=== PATIENT | male | born 1960 | race African-American/Black ===

== ENCOUNTER 2016-12-19 12:59 | Inpatient (IN) | payer OTHER ==
[2016-12-19 17:46] VITALS: BMI 24.6
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
[2016-12-19] MEDS ORDERED: MAG HYDROX/AL HYDROX/SIMETH 30 ML UNIT-DOSE CUP PO PRN (19:31)
[2016-12-19] MEDS ORDERED: hydrOXYzine PAMOATE 50 MG CAPSULE (FP) PO PRN (19:31)
[2016-12-19] MEDS ORDERED: LOPERAMIDE HCL 2 MG CAPSULE PO PRN (19:31)
[2016-12-19] MEDS ORDERED: P-EPHED 60MG/TRIPROLIDI 2.5MG TABLET PO PRN (19:31)
[2016-12-19] MEDS ORDERED: IBUPROFEN 400 MG TABLET (FP) PO PRN (19:31)
[2016-12-19] MEDS ORDERED: diphenhydrAMINE HCL 50 MG CAPSULE PO PRN (19:31)
[2016-12-19] MEDS ORDERED: chlordiazePOXIDE HCL 25 MG CAPSULE PO PRN (19:31)
[2016-12-19] MEDS ORDERED: MAGNESIUM HYDROX 2400MG/30ML ORAL SUSPENSION 30 ML CUP PO PRN (19:31)
[2016-12-19] MEDS ORDERED: MAGNESIUM CITRATE 300 ML BOTTLE PO PRN (19:31)
[2016-12-19] MEDS ORDERED: MENTHOL/PHENOL 1 EACH UD MM PRN (19:31)
[2016-12-19] MEDS ORDERED: chlordiazePOXIDE HCL 25 MG CAPSULE PO ONE (19:31)
[2016-12-19] MEDS ORDERED: NICOTINE POLACRILEX 4 MG GUM BC PRN (19:31)
[2016-12-19] MEDS ORDERED: guaiFENesin/D-METHORPHAN HB 10 ML UNIT-DOSE CUPS PO PRN (19:31)
[2016-12-19] MEDS ORDERED: ALBUTEROL SO4 2.5/IPRATROPIUM 0.5 INH SOL 3 ML VIAL.NEB. NEB PRN (19:39)
[2016-12-19] MEDS ORDERED: ALBUTEROL SO4 6.7 GM HFA INHALER IH PRN (19:39)
[2016-12-19] MEDS ORDERED: BACLOFEN 10 MG TABLET (FP) PO PRN (19:40)
[2016-12-19] MEDS: levETIRAcetam 500 MG TABLET (FP) PO SCH (22:07)
[2016-12-19] MEDS: METOPROLOL SUCCINATE 25 MG TAB.SR.24H (FP) PO SCH (22:07)
[2016-12-19] MEDS: chlordiazePOXIDE HCL 25 MG CAPSULE PO SCH (22:07)
[2016-12-19] MEDS: THIAMINE HCL 100 MG TABLET (FP) PO SCH (22:07)
[2016-12-19] MEDS: RANITIDINE HCL 150 MG TABLET (FP) PO SCH (22:07)
[2016-12-19] MEDS: ATORVASTATIN CA 40 MG TABLET (FP) PO SCH (22:07)
[2016-12-19] MEDS: CLOTRIMAZOLE 1% CREAM 15 GM TUBE TP SCH (22:11)
[2016-12-20] MEDS: chlordiazePOXIDE HCL 25 MG CAPSULE PO SCH ×4 (05:58→22:15)
[2016-12-20] MEDS: RANITIDINE HCL 150 MG TABLET (FP) PO SCH ×2 (10:15→22:15)
[2016-12-20] MEDS: ASPIRIN 81 MG CHEWABLE TABLETS PO SCH (10:15)
[2016-12-20] MEDS: levETIRAcetam 500 MG TABLET (FP) PO SCH ×2 (10:15→22:15)
[2016-12-20] MEDS: METOPROLOL SUCCINATE 25 MG TAB.SR.24H (FP) PO SCH ×2 (10:16→22:55)
[2016-12-20] MEDS: PRENATAL VITAMINS W/ FOLIC ACID TABLET (FP) PO SCH (10:16)
[2016-12-20] MEDS: CLOTRIMAZOLE 1% CREAM 15 GM TUBE TP SCH ×2 (10:16→22:16)
[2016-12-20] MEDS: NICOTINE 21 MG/24 HOURS TOPICAL PATCH TD SCH (10:16)
[2016-12-20] MEDS: ACETAMINOPHEN 325 MG TABLET (FP) PO PRN ×2 (10:17→17:34)
--- NOTE | 2016-12-20 10:31 | CONSULT ---
[facility] Psychiatric Consult - Data Date of interview: 12/20/16 Admission source: [facility] Identifying data: Readmission to [facility] for this 56 y/o AA male seeking detox treatment on for alcohol dependence.Patient is single,a father of one,now domiciled,unemployed and supported on SSI benefits. Substance Abuse History: - Smoking Cessation. Smoking history: Current every day smoker. Have you smoked in the past 12 months: Yes. Aproximately how many cigarettes per day: 15. Cigars Per Day: 0. Hx Chewing Tobacco Use: No. Initiated information on smoking cessation: Yes. 'Breaking Loose' booklet given : 12/19/16. - Substance & Tx. History. Hx Alcohol Use: Yes. Hx Substance Use : No. Substance Use Type: Alcohol. Hx Substance Use Treatment: Yes. - Substances Abused. Alcohol. Route: Oral. Frequency: Daily. Amount used: 25ozx4+locox4. Age of first use: 12. Date of Last Use: 12/18/16. Confirmed by patient. Medical History: Significant for hypertension,GERD,bronchial asthma,COPD, diabetes mellitus-type II and dyslipidemia.Noted history of splenectomy. Psychiatric History: Past history of psychiatric hospitalizations for depression /suicide attempt via overdose with pills.Diagnosed with MDD and prescribed trazodone 200 mg/hs + sertraline 100 mg/day.Psychiatric outpatient services are rendered at [facility] in the [place].Mr Horn requests continuation of his medications. Physical/Sexual Abuse/Trauma History: Patient denies. Additional Comment: Urine Drug Screen Results: MET-Methamphetamine, BZO- Benzodiazepines.Noted. Mental Status Exam - Mental Status Exam Alert and Oriented to: Time, Place, Person Cognitive Function: Grossly Intact Patient Appearance: Well Groomed Mood: Anxious, Apprehensive, Hopeful Affect: Mood Congruent Patient Behavior: Sedated (light sedation), Fatigued Speech Pattern: Clear Voice Loudness: Normal Thought Process: Goal Oriented Thought Disorder: Not Present Hallucinations: Denies Suicidal Ideation: Denies Homicidal Ideation: Denies Insight/Judgement: Poor Sleep: Poorly, Difficulty falling asleep Appetite: Good Muscle strength/Tone: Normal Gait/Station: Normal Psychiatric Findings - Problem List ([place] 1, 2,3) (1) Alcohol dependence with uncomplicated withdrawal Current Visit: Yes Status: Acute (2) Amphetamine abuse Current Visit: Yes Status: Acute (3) Nicotine dependence Current Visit: Yes Status: Acute Qualifiers: Nicotine product type: cigarettes Substance use status: in withdrawal Qualified Code(s): F17.213 - Nicotine dependence, cigarettes, with withdrawal (4) Depressive disorder Current Visit: Yes Status: Chronic (5) Substance induced mood disorder Current Visit: Yes Status: Acute (6) Asthma Current Visit: Yes Status: Chronic Qualifiers: Asthma severity: mild intermittent Asthma complication type: with status asthmaticus Qualified Code(s): J45.22 - Mild intermittent asthma with status asthmaticus (7) COPD (chronic obstructive pulmonary disease) Current Visit: Yes Status: Chronic Qualifiers: COPD type: emphysema Emphysema type: panlobular Qualified Code(s ): J43.1 - Panlobular emphysema (8) DM2 (diabetes mellitus, type 2) Current Visit: Yes Status: Chronic Qualifiers: Diabetes mellitus complication status: without complication Diabetes mellitus long-term insulin use: without exterminator use Qualified Code(s): E11.9 - Type 2 diabetes mellitus without complications (9) Essential hypertension Current Visit: Yes Status: Chronic (10) GERD (gastroesophageal reflux disease) Current Visit: Yes Status: Chronic Qualifiers: Esophagitis presence: without esophagitis Qualified Code(s): K21.9 - Gastro-esophageal reflux disease without esophagitis (11) Hyperlipidemia Current Visit: Yes Status: Chronic Qualifiers: Hyperlipidemia type: pure hypercholesterolemia Qualified Code(s): E78.00 - Pure hypercholesterolemia, unspecified; E78.0 - Pure hypercholesterolemia (12) Low back pain Current Visit: Yes Status: Chronic Qualifiers: Chronicity: chronic Back pain laterality: bilateral Sciatica presence: without sciatica Qualified Code(s): M54.5 - Low back pain (13) Insomnia Current Visit: Yes Status: Acute - Initial Treatment Plan Initial Treatment Plan: Psychoeducation.Detoxification.Medications : seroquel 200 mg po hs.Patient declines to resume trazodone.Side effects/benefits of seroquel are discussed with the patient.He agrees with careplan.Observation.
--- NOTE | 2016-12-20 14:57 | PN ---
[facility] CIWA - CIWA Score Nausea/Vomitin Muscle Tremors: 4-Moderate,w/Arms Extend Anxiety: 3 Agitation: 2 Paroxysmal Sweats: 3 Orientation: 4Disoriented Place/Person Tacttile Disturbances: 0-None Auditory Disturbances: 0-None Visual Disturbances: 0-None Headache: 3-Moderate CIWA-Ar Total Score: 24 [facility] Progress Note (SOAP) Subjective: Diarrhea, Vomiting, Sweating, H/A, Back Ache, Tremors. Objective: PT. A & O X 1 (DISORIENTED ABOUT DAY/DATE AND ABOUT CURRENT LOCATION). 12/20/16 14:53 Vital Signs Temperature 96.7 F L 12/20/16 13:19 Pulse Rate 75 12/20/16 13:19 Respiratory Rate 20 12/20/16 13:19 Blood Pressure 131/78 12/20/16 13:19 O2 Sat by Pulse Oximetry (%) Laboratory Last Values POC Glucometer 125 UNITS (()) 12/20/16 05:59 12/20/16 14:55 GLUCOMETER READING NOTED. UA NOT YET COLLECTED. PATIENT REFUSED OTHER LABS. Assessment: 12/20/16 14:56 WITHDRAWAL SYMPTOMS. Plan: CONTINUE DETOX. ADVISED PATIENT TO FOLLOW-UP WITH SOCIAL WORK JOB TITLES / REHAB MEDICAL PROVIDER AFTER DISCHARGE FROM DETOX FOR GENERAL MEDICAL ASSESSMENT.
[2016-12-20] MEDS: THIAMINE HCL 100 MG TABLET (FP) PO SCH (22:14)
[2016-12-20] MEDS: QUEtiapine FUMARATE 200 MG TABLET PO SCH (22:15)
[2016-12-20] MEDS: ATORVASTATIN CA 40 MG TABLET (FP) PO SCH (22:15)
[2016-12-21] MEDS: chlordiazePOXIDE HCL 25 MG CAPSULE PO SCH ×3 (05:57→17:26)
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
[2016-12-21] MEDS: RANITIDINE HCL 150 MG TABLET (FP) PO SCH ×2 (10:10→22:20)
[2016-12-21] MEDS: PRENATAL VITAMINS W/ FOLIC ACID TABLET (FP) PO SCH (10:10)
[2016-12-21] MEDS: levETIRAcetam 500 MG TABLET (FP) PO SCH ×2 (10:11→22:21)
[2016-12-21] MEDS: CLOTRIMAZOLE 1% CREAM 15 GM TUBE TP SCH ×2 (10:11→22:20)
[2016-12-21] MEDS: NAPROXEN 500 MG TABLET (FP) PO SCH ×2 (10:11→22:20)
[2016-12-21] MEDS: NICOTINE 21 MG/24 HOURS TOPICAL PATCH TD SCH (10:11)
[2016-12-21] MEDS: METOPROLOL SUCCINATE 25 MG TAB.SR.24H (FP) PO SCH ×2 (10:11→22:20)
[2016-12-21] MEDS: ASPIRIN 81 MG CHEWABLE TABLETS PO SCH (10:11)
[2016-12-21] MEDS: GABAPENTIN 100 MG CAPSULE (FP) PO SCH ×2 (13:14→22:19)
[2016-12-21] MEDS: CYCLOBENZAPRINE HCL 10 MG TABLET (FP) PO SCH ×2 (13:14→22:20)
[2016-12-21 14:00] LABS: URINE APPEARANCE CLEAR; URINE BILIRUBIN NEGATIVE (NEGATIVE); URINE BLOOD NEGATIVE (NEGATIVE); URINE COLOR YELLOW; URINE GLUCOSE (UA) 1+ (NEGATIVE); URINE KETONE NEGATIVE (NEGATIVE); URINE LEUK ESTERASE NEGATIVE (NEGATIVE); URINE NITRITE NEGATIVE (NEGATIVE); URINE PROTEIN NEGATIVE (NEGATIVE); URINE UROBILINOGEN 2.0 E.U/dl E.U./dl (0.2-1.0)
--- NOTE | 2016-12-21 14:31 | EKG ---
Test Reason : Blood Pressure : / mmHG Vent. Rate : 075 BPM Atrial Rate : 075 BPM P-R Int : 158 ms QRS Dur : 086 ms QT Int : 406 ms P-R-T Axes : 078 037 016 degrees QTc Int : 453 ms NORMAL SINUS RHYTHM VOLTAGE CRITERIA FOR LEFT VENTRICULAR HYPERTROPHY CANNOT RULE OUT SEPTAL INFARCT , AGE UNDETERMINED EARLY REPOLARIZATION ABNORMAL ECG NO PREVIOUS ECGS AVAILABLE CLINICAL CORRELATION IS RECOMMENDED Confirmed by JAIDEN ROWELL, SUSAN ([id number]) on 12/21/2016 2:31:08 PM Referred By: Rosendo Kent Confirmed By:SUSAN HWANG MD
[2016-12-21] MEDS: ACETAMINOPHEN 325 MG TABLET (FP) PO PRN (17:28)
[2016-12-21] MEDS ORDERED: levETIRAcetam 250 MG TABLET (FP) PO ONE (19:53)
[2016-12-21] MEDS ORDERED: ATORVASTATIN CA 20 MG TABLET (FP) ONE (19:54)
[2016-12-21] MEDS: THIAMINE HCL 100 MG TABLET (FP) PO SCH (22:19)
[2016-12-21] MEDS: ATORVASTATIN CA 40 MG TABLET (FP) PO SCH (22:20)
[2016-12-21] MEDS: QUEtiapine FUMARATE 200 MG TABLET PO SCH (22:20)
[2016-12-21] MEDS: chlordiazePOXIDE 5 MG CAPSULE PO SCH (23:22)
[2016-12-22] MEDS: GABAPENTIN 100 MG CAPSULE (FP) PO SCH ×3 (05:35→22:08)
[2016-12-22] MEDS: CYCLOBENZAPRINE HCL 10 MG TABLET (FP) PO SCH ×3 (05:35→22:09)
[2016-12-22] MEDS: ACETAMINOPHEN 325 MG TABLET (FP) PO PRN (05:37)
[2016-12-22] MEDS: chlordiazePOXIDE 5 MG CAPSULE PO SCH ×3 (06:16→17:19)
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
[2016-12-22] MEDS: ASPIRIN 81 MG CHEWABLE TABLETS PO SCH (10:13)
[2016-12-22] MEDS: RANITIDINE HCL 150 MG TABLET (FP) PO SCH ×2 (10:14→22:09)
[2016-12-22] MEDS: CLOTRIMAZOLE 1% CREAM 15 GM TUBE TP SCH ×2 (10:14→22:09)
[2016-12-22] MEDS: PRENATAL VITAMINS W/ FOLIC ACID TABLET (FP) PO SCH (10:14)
[2016-12-22] MEDS: NAPROXEN 500 MG TABLET (FP) PO SCH ×2 (10:14→22:08)
[2016-12-22] MEDS: NICOTINE 21 MG/24 HOURS TOPICAL PATCH TD SCH (10:14)
[2016-12-22] MEDS: METOPROLOL SUCCINATE 25 MG TAB.SR.24H (FP) PO SCH ×2 (10:14→22:08)
[2016-12-22] MEDS ORDERED: levETIRAcetam 250 MG TABLET (FP) PO ONE (10:15)
[2016-12-22] MEDS: levETIRAcetam 500 MG TABLET (FP) PO SCH ×2 (10:18→22:08)
[2016-12-22] MEDS: FLUOCINONIDE 0.05% TOP OINT (60 GM TUBE) TP SCH ×4 (12:51→22:08)
[2016-12-22] MEDS: THIAMINE HCL 100 MG TABLET (FP) PO SCH (22:08)
[2016-12-22] MEDS: chlordiazePOXIDE HCL 10 MG CAPSULE PO SCH (22:08)
[2016-12-22] MEDS: ATORVASTATIN CA 40 MG TABLET (FP) PO SCH (22:08)
[2016-12-22] MEDS: QUEtiapine FUMARATE 200 MG TABLET PO SCH (22:09)
[2016-12-23] MEDS: GABAPENTIN 100 MG CAPSULE (FP) PO SCH (05:33)
[2016-12-23] MEDS: CYCLOBENZAPRINE HCL 10 MG TABLET (FP) PO SCH (05:33)
[2016-12-23] MEDS: chlordiazePOXIDE HCL 10 MG CAPSULE PO SCH ×2 (05:34→10:27)
[2016-12-23] MEDS: ACETAMINOPHEN 325 MG TABLET (FP) PO PRN (05:34)
[2016-12-23 06:19] VITALS: BP 115/67; PULSE 77; TEMP 95.8
[2016-12-23 10:04] LABS: BASOPHIL 0.8 % (0-2.0); MCH 31.8 pg (25.7-33.7); MCHC 32.7 g/dl (32.0-35.9); MEAN CELL VOLUME 97.3 fl (80-96); MEAN PLT VOLUME 8.5 fl (7.5-11.1); NEUTROPHILS 64.7 % (42.8-82.8); PLATELET COUNT 440 K/MM3 (134-434); RDW 18.7 % (11.9-15.9); WHITE BLOOD COUNT 7.8 K/mm3 (4.0-10.0)
[2016-12-23] MEDS: PRENATAL VITAMINS W/ FOLIC ACID TABLET (FP) PO SCH (10:25)
[2016-12-23] MEDS: RANITIDINE HCL 150 MG TABLET (FP) PO SCH (10:25)
[2016-12-23] MEDS: levETIRAcetam 500 MG TABLET (FP) PO SCH (10:25)
[2016-12-23] MEDS: NAPROXEN 500 MG TABLET (FP) PO SCH (10:25)
[2016-12-23] MEDS: FLUOCINONIDE 0.05% TOP OINT (60 GM TUBE) TP SCH (10:26)
[2016-12-23] MEDS: ASPIRIN 81 MG CHEWABLE TABLETS PO SCH (10:26)
[2016-12-23] MEDS: METOPROLOL SUCCINATE 25 MG TAB.SR.24H (FP) PO SCH (10:26)
[2016-12-23] MEDS: CLOTRIMAZOLE 1% CREAM 15 GM TUBE TP SCH (10:26)
[2016-12-23] MEDS: NICOTINE 21 MG/24 HOURS TOPICAL PATCH TD SCH (10:26)
[2016-12-23 10:27] LABS: ALBUMIN 3.4 g/dl (3.4-5.0); ALK PHOS 96 U/L (45-117); ANION GAP 7 (8-16); BILIRUBIN,TOTAL 0.2 mg/dL (0.2-1.0); CALCIUM 9.3 mg/dL (8.5-10.1); CO2 27 mmol/L (21-32); COCKROFT - GAULT 108.64; CREATININE 0.9 mg/dL (0.7-1.3); GLUCOSE,RANDOM 87 mg/dL (74-106); SGOT/AST 27 U/L (15-37); SGPT/ALT 33 U/L (12-78); TOT PROT 6.5 g/dl (6.4-8.2)
--- NOTE | 2016-12-23 10:45 | DS ---
[facility] Detox Discharge Summary Admission Date: 12/19/16 Discharge Date: 12/23/16 - History Present History: Alcohol Dependence Pertinent Past History: GERD Asthma HTN Hyperlipidemia type II DM - Physical Exam Results Vital Signs: Vital Signs Temperature 95.8 F L 12/23/16 06:19 Pulse Rate 77 12/23/16 06:19 Respiratory Rate 16 12/23/16 06:19 Blood Pressure 115/67 12/23/16 06:19 O2 Sat by Pulse Oximetry (%) Pertinent Admission Physical Exam Findings: Withdrawal sx. Laboratory Last Values WBC 7.8 K/mm3 (4.0-10.0) 12/23/16 07:00 RBC 3.75 M/mm3 (4.00-5.60) L 12/23/16 07:00 Hgb 11.9 GM/dL (11.7-16.9) 12/23/16 07:00 Hct 36.5 % (35.4-49) 12/23/16 07:00 MCV 97.3 fl (80-96) H 12/23/16 07:00 MCHC 32.7 g/dl (32.0-35.9) 12/23/16 07:00 RDW 18.7 % (11.9-15.9) H 12/23/16 07:00 Plt Count 440 K/MM3 (134-434) H D 12/23/16 07:00 MPV 8.5 fl (7.5-11.1) 12/23/16 07:00 Neutrophils % 64.7 % (42.8-82.8) 12/23/16 07:00 Lymphocytes % 23.0 % (8-40) 12/23/16 07:00 Monocytes % 9.5 % (3.8-10.2) 12/23/16 07:00 Eosinophils % 2.0 % (0-4.5) 12/23/16 07:00 Basophils % 0.8 % (0-2.0) 12/23/16 07:00 Sodium 141 mmol/L (136-145) 12/23/16 07:00 Potassium 4.7 mmol/L (3.5-5.1) 12/23/16 07:00 Chloride 107 mmol/L (98-107) 12/23/16 07:00 Carbon Dioxide 27 mmol/L (21-32) D 12/23/16 07:00 Anion Gap 7 (8-16) L 12/23/16 07:00 BUN 14 mg/dL (7-18) D 12/23/16 07:00 Creatinine 0.9 mg/dL (0.7-1.3) D 12/23/16 07:00 Creat Clearance w eGFR > 60 (>60) 12/23/16 07:00 POC Glucometer 95 UNITS (()) 12/23/16 05:32 Random Glucose 87 mg/dL (74-106) D 12/23/16 07:00 Calcium 9.3 mg/dL (8.5-10.1) 12/23/16 07:00 Total Bilirubin 0.2 mg/dL (0.2-1.0) D 12/23/16 07:00 AST 27 U/L (15-37) D 12/23/16 07:00 ALT 33 U/L (12-78) D 12/23/16 07:00 Alkaline Phosphatase 96 U/L (45-117) 12/23/16 07:00 Total Protein 6.5 g/dl (6.4-8.2) 12/23/16 07:00 Albumin 3.4 g/dl (3.4-5.0) 12/23/16 07:00 Urine Color Yellow 12/21/16 13:30 Urine Appearance Clear 12/21/16 13:30 Urine pH 7.0 (5.0-8.0) D 12/21/16 13:30 Ur Specific [place] 1.021 (1.001-1.035) 12/21/16 13:30 Urine Protein Negative (NEGATIVE) 12/21/16 13:30 Urine Glucose (UA) 1+ (NEGATIVE) H 12/21/16 13:30 Urine Ketones Negative (NEGATIVE) 12/21/16 13:30 Urine Blood Negative (NEGATIVE) 12/21/16 13:30 Urine Nitrite Negative (NEGATIVE) 12/21/16 13:30 Urine Bilirubin Negative (NEGATIVE) 12/21/16 13:30 Urine Urobilinogen 2.0 e.u/dl E.U./dl (0.2-1.0) 12/21/16 13:30 Ur Leukocyte Esterase Negative (NEGATIVE) 12/21/16 13:30 labs noted - Treatment Hospital Course: Detox Protocol Followed, Detoxed Safely, Responded well, Discharged Condition Good, Rehab Referral Accepted Patient has Accepted a Rehab Referral to: [facility] & 12 step meetings - Medication Discharge Medications: Ambulatory Orders Albuterol Sulfate Inhaler - [Ventolin Hfa Inhaler -] 2 inh PO Q4H PRN 08/29/16 Aspirin [ASA -] 81 mg PO DAILY 08/29/16 Atorvastatin Ca [Lipitor] 40 mg PO HS 08/29/16 Folic Acid - 1 mg PO DAILY 08/29/16 Ibuprofen [Motrin -] 600 mg PO TID PRN 08/29/16 Levetiracetam [Keppra -] 500 mg PO Q12H 08/29/16 Lisinopril [Prinivil] 20 mg PO DAILY 08/29/16 Lisinopril [Prinivil] 20 mg PO DAILY 08/29/16 Meloxicam [Mobic] 15 mg PO DAILY 08/29/16 Metformin HCl [Glucophage -] 500 mg PO BID 08/29/16 Metoprolol Tartrate [Lopressor -] 25 mg PO BID 08/29/16 Multivitamins [Tab-A-Vit -] 1 tab PO DAILY 08/29/16 Quetiapine Fumarate [Seroquel] 300 mg PO HS 08/29/16 Ranitidine HCl 150 mg PO BID 08/29/16 Sertraline HCl [Zoloft -] 100 mg PO DAILY 08/29/16 Tiotropium [place] [Spiriva] 1 inh PO DAILY 08/29/16 Trazodone HCl 200 mg PO HS 08/29/16 Sertraline HCl [Zoloft] 100 mg PO DAILY #30 tablet 08/30/16 Trazodone HCl 200 mg PO HS #60 tablet 08/30/16 Quetiapine Fumarate [Seroquel -] 200 mg PO HS #30 tab 12/20/16 - Diagnosis (1) Alcohol dependence with uncomplicated withdrawal Current Visit: Yes Status: Acute (2) Nicotine dependence Current Visit: Yes Status: Acute Qualifiers: Nicotine product type: cigarettes Substance use status: in withdrawal Qualified Code(s): F17.213 - Nicotine dependence, cigarettes, with withdrawal (3) Seizure Current Visit: Yes Status: Acute (4) Asthma Current Visit: Yes Status: Chronic Qualifiers: Asthma severity: mild intermittent Asthma complication type: uncomplicated Qualified Code(s): J45.20 - Mild intermittent asthma, uncomplicated (5) DM2 (diabetes mellitus, type 2) Current Visit: Yes Status: Chronic Qualifiers: Diabetes mellitus complication status: without complication Diabetes mellitus senior living insulin use: without intermediate frame tender use Qualified Code(s): E11.9 - Type 2 diabetes mellitus without complications (6) Essential hypertension Current Visit: Yes Status: Chronic (7) Hyperlipidemia Current Visit: Yes Status: Chronic Qualifiers: Hyperlipidemia type: pure hypercholesterolemia Qualified Code(s): E78.00 - Pure hypercholesterolemia, unspecified; E78.0 - Pure hypercholesterolemia - AMA Did Patient Leave Against Medical Advice: No
== END 2016-12-23 11:08 | disposition home or self-care (01) | DRG 775 ==
LOC: YASAS 12:59 → Y3N 19:03
PROVIDERS: ADMIT Internal Medicine; ATTEND Internal Medicine
PROC: HZ2ZZZZ Detoxification Services for Substance Abuse Treatment (ICD-10-PCS; principal; 2016-12-19)
DX: F10.230 Alcohol dependence with withdrawal, uncomplicated (principal); F17.210 Nicotine dependence, cigarettes, uncomplicated; F19.24 Other psychoactive substance dependence with psychoactive substance-induced mood disorder; F15.10 Other stimulant abuse, uncomplicated; F32.9 Major depressive disorder, single episode, unspecified; G40.909 Epilepsy, unspecified, not intractable, without status epilepticus; G47.00 Insomnia, unspecified; E11.9 Type 2 diabetes mellitus without complications; E78.5 Hyperlipidemia, unspecified; I10 Essential (primary) hypertension; M79.652 Pain in left thigh; K21.9 Gastro-esophageal reflux disease without esophagitis; R21 Rash and other nonspecific skin eruption; K08.89 Other specified disorders of teeth and supporting structures; Z91.14 Patient's other noncompliance with medication regimen; Z87.898 Personal history of other specified conditions; Z91.5 Personal history of self-harm
CPT/HCPCS: 36415; 80053; 81003; 85025; 86593; 93005; 93010; J0475

== ENCOUNTER 2017-06-23 13:01 | Inpatient (IN) | payer OTHER ==
[2017-06-23 13:31] VITALS: BMI 27.9
--- NOTE | 2017-06-23 14:26 | HP ---
Admission ROS [facility] Chief Complaint: I need to continue my treatment. Allergies/Adverse Reactions: Allergies Allergy/AdvReac Type Severity Reaction Status Date / Time No Known Allergies Allergy Verified 06/23/17 13:53 History of Present Illness: Pt came for rehab for further treatment. pt was detoxed at a facility in [place] a week ago for alcohol dependence and is here now for rehab. Exam Limitations: No Limitations - Ebola screening Have you traveled outside of the country in the last 21 days: No Have you had contact with anyone from an Ebola affected area: No Have you been sick,other than usual withdrawal symptoms: No Do you have a fever: No - Review of Systems Constitutional: Chills, Diaphoresis, Changes in sleep EENT: reports: No Symptoms Reported Respiratory: reports: No Symptoms reported Cardiac: reports: Syncope GI: reports: No Symptoms Reported, Diarrhea, Poor Fluid Intake : reports: No Symptoms Reported Musculoskeletal: reports: Back Pain Integumentary: reports: Dryness, Pruritus, Rash Neuro: reports: Headache, Tingling, Tremors Endocrine: reports: No Symptoms Reported Hematology: reports: No Symptoms Reported Psychiatric: reports: No Sypmtoms Reported, Judgement Intact, Mood/Affect Appropiate, Orientated x3, Agitated, Anxious Other Systems: Reviewed and Negative Patient History - Patient Medical History Hx Anemia: No Hx Asthma: Yes (on albuterol inhaler) Hx Chronic Obstructive Pulmonary Disease (COPD): Yes Hx Cancer: No Hx Cardiac Disorders: No Hx Congestive Heart Failure: No Hx Hypertension: Yes (non comliance) Hx Hypercholesterolemia: Yes (non cpmliance) Hx Pacemaker: No HX Cerebrovascular Accident: No Hx Seizures: Yes (last 06/22) Hx Dementia: No Hx Diabetes: Yes (type 2 non compliance) Hx Gastrointestinal Disorders: No Hx Liver Disease: No Hx Genitourinary Disorders: No Hx Sexually Transmitted Disorders: No Hx Renal Disease (ESRD): No Hx Thyroid Disease: No Hx Human Immunodeficiency Virus (HIV): No (last 07/23 negative) Hx Hepatitis C: No Hx Depression: Yes (non compliance) Hx Suicide Attempt: Yes (overdose few weeks ago, psychiatric hospitalized x 2 weeks discharged ) Hx Bipolar Disorder: No Hx Schizophrenia: No - Patient Surgical History Past Surgical History: Yes Hx Neurologic Surgery: No Hx Cataract Extraction: No Hx Cardiac Surgery: No Hx Lung Surgery: No Hx Breast Surgery: No Hx Breast Biopsy: No Hx Abdominal Surgery: Yes (splenecty post trauma 2013 in [facility] [address]) Hx Appendectomy: No Hx Cholecystectomy: No Hx Genitourinary Surgery: No Hx Section: No Hx Orthopedic Surgery: Yes (2011 left mid finger immobile) Anesthesia Reaction: No - PPD History Previous Implant?: Yes Documented Results: Negative w/proof Date: 08/31/16 PPD to be Administered?: No - Reproductive History Patient is a Female of Child Bearing Age (11 -55 yrs old): No - Smoking Cessation Smoking history: Current every day smoker Have you smoked in the past 12 months: Yes Aproximately how many cigarettes per day: 15 Cigars Per Day: 0 Hx Chewing Tobacco Use: No Initiated information on smoking cessation: Yes 'Breaking Loose' booklet given: 06/23/17 - Substance & Tx. History Hx Alcohol Use: Yes Hx Substance Use: No Substance Use Type: Alcohol Hx Substance Use Treatment: Yes (last detox a week ago at detox facility in [facility]) Family Disease History - Family Disease History Family Disease History: CA: Father (colon ), Mother (colon,), Respiratory: Brother (killed), Sister, Other: Brother Admission Physical Exam S - Vital Signs Vital Signs: Vital Signs - 24 hr 06/23/17 13:30 Temperature 98.0 F Pulse Rate 100 H Respiratory 18 Rate Blood Pressure 135/87 - Physical General Appearance: Yes: Appropriately Dressed, Moderate Distress, Irritable HEENTM: Yes: Hearing grossly Normal, Normal Voice Respiratory: Yes: Lungs Clear, Normal Breath Sounds, No Respiratory Distress Neck: Yes: No masses,lesions,Nodules Breast: Yes: Within Normal Limits Cardiology: Yes: Regular Rhythm, Regular Rate, S1, S2 Abdominal: Yes: Normal Bowel Sounds, Non Tender, Soft, Surgical Scar (old scar for a spleen removal years ago) Genitourinary: Yes: Within Normal Limits Back: Yes: Normal Inspection Musculoskeletal: Yes: full range of Motion Extremities: Yes: Normal Capillary Refill, Normal Inspection, Non-Tender, Tremors Neurological: Yes: Fully Oriented, Alert, Normal Response Integumentary: Yes: Normal Color, Diaphoresis Lymphatic: Yes: Within Normal Limits - Diagnostic (1) Asthma Current Visit: Yes Status: Chronic Qualifiers: Asthma severity: mild (2) COPD (chronic obstructive pulmonary disease) Current Visit: Yes Status: Chronic Qualifiers: COPD type: unspecified COPD Qualified Code(s): J44.9 - Chronic obstructive pulmonary disease, unspecified; J44.9 - Chronic obstructive pulmonary disease, unspecified; J44.9 - Chronic obstructive pulmonary disease, unspecified; J44.9 - Chronic obstructive pulmonary disease, unspecified (3) DM2 (diabetes mellitus, type 2) Current Visit: Yes Status: Chronic Qualifiers: Diabetes mellitus complication status: without complication (4) Essential hypertension Current Visit: Yes Status: Chronic (5) GERD (gastroesophageal reflux disease) Current Visit: Yes Status: Chronic Qualifiers: Esophagitis presence: without esophagitis (6) Hyperlipidemia Current Visit: Yes Status: Chronic Qualifiers: Hyperlipidemia type: pure hypercholesterolemia (7) Nicotine dependence Current Visit: Yes Status: Chronic Qualifiers: Nicotine product type: cigarettes Substance use status: uncomplicated Qualified Code(s): F17.210 - Nicotine dependence, cigarettes, uncomplicated; F17.210 - Nicotine dependence, cigarettes, uncomplicated (8) Seizure Current Visit: No Status: Chronic (9) Alcohol dependence in remission Current Visit: No Status: Chronic Cleared for Admission S - Detox or Rehab [facility] Level of Care: Medically Managed Claeared for Rehab Admission: Yes [facility] Breath Alcohol Content Breath Alcohol Content: 0 Urine Drug Screen - Results Drug Screen Negative: No Urine Drug Screen Results: BZO-Benzodiazepines Inpatient Rehab Admission - Initial Determination Are CD services needed?: Yes Free of communicable disease: Yes Not in need of hospitalization: Yes - Rehab Admission Criteria Patient is meeting Inpatient Rehab admission criteria:: Yes
[2017-06-23] MEDS ORDERED: LOPERAMIDE HCL 2 MG CAPSULE PO PRN (14:33)
[2017-06-23] MEDS ORDERED: hydrOXYzine PAMOATE 50 MG CAPSULE (FP) PO PRN (14:33)
[2017-06-23] MEDS ORDERED: MAGNESIUM CITRATE 300 ML BOTTLE PO PRN (14:33)
[2017-06-23] MEDS ORDERED: P-EPHED 60MG/TRIPROLIDI 2.5MG TABLET PO PRN (14:33)
[2017-06-23] MEDS ORDERED: NICOTINE POLACRILEX 4 MG GUM BC PRN (14:33)
[2017-06-23] MEDS ORDERED: MAGNESIUM HYDROX 2400MG/30ML ORAL SUSPENSION 30 ML CUP PO PRN (14:33)
[2017-06-23] MEDS ORDERED: guaiFENesin/D-METHORPHAN HB 10 ML UNIT-DOSE CUPS PO PRN (14:33)
[2017-06-23] MEDS ORDERED: MAG HYDROX/AL HYDROX/SIMETH 30 ML UNIT-DOSE CUP PO PRN (14:33)
[2017-06-23] MEDS ORDERED: MENTHOL/PHENOL 1 EACH UD MM PRN (14:33)
[2017-06-23] MEDS ORDERED: ALBUTEROL SO4 18 GM HFA INHALER IH PRN (14:40)
[2017-06-23 21:23] LABS: URINE APPEARANCE CLEAR; URINE BILIRUBIN NEGATIVE (NEGATIVE); URINE BLOOD NEGATIVE (NEGATIVE); URINE COLOR YELLOW; URINE GLUCOSE (UA) NEGATIVE (NEGATIVE); URINE KETONE NEGATIVE (NEGATIVE); URINE NITRITE NEGATIVE (NEGATIVE); URINE PROTEIN NEGATIVE (NEGATIVE); URINE UROBILINOGEN NEGATIVE mg/dL (0.2-1.0)
[2017-06-23] MEDS: diphenhydrAMINE HCL 50 MG CAPSULE PO PRN (21:33)
[2017-06-23] MEDS: THIAMINE HCL 100 MG TABLET (FP) PO SCH (21:33)
[2017-06-23] MEDS: levETIRAcetam 500 MG TABLET (FP) PO SCH (21:35)
[2017-06-23] MEDS: METOPROLOL TARTRATE 25 MG TABLET (FP) PO SCH (21:35)
[2017-06-23] MEDS: BUDESONIDE/FORMETEROL FUMARATE 160/4.5 mcg INHALER IH SCH (21:36)
[2017-06-23 22:18] LABS: URINE LEUK ESTERASE Negative (NEGATIVE)
[2017-06-24] MEDS: metFORMIN HCL 500 MG TABLET (FP) PO SCH (06:27)
--- NOTE | 2017-06-24 06:37 | HP ---
Psychiatrist Admission - Data Date of interview: 06/24/17 Admission source: [facility]) Identifying data: This is the first [facility] admission for this 56 years old single Black male, father of a 32 years old daughter, unemployed on SSI, homeless Medical History: Significant for hypertension,GERD, bronchial asthma,COPD, diabetes mellitus-type II and dyslipidemia, history of splenectomy and surgery left middle finger. Smokes 15 cigarettes daily Psychiatric History: Reports that his first psychiatric treatment was in 2009 when he was admitted to a hospital in [place], [place] for depression and suicidal attempt by taking sleeping pills. Told securities underwriter that the murder of his 18 years old brother was the precipitating factor for that admission. Reports that he was treated with Zoloft and Trazadone. Reports one subsequent psychiatric admission in 2013 to [facility] for depression. Claims that he was drinking at the time. Reports receiving psychiatric outpatient treatment at [facility]) and [facility] in the [place]. He stopped attending the latter 7-8 months ago and has been off psychotropic medications since. Claims that he was prescribed Zoloft 100 mg po daily, Seroquel 200 mg po HS and Trazadone 100 mg po HS. At present, denies feeling depressed by sleeping poorly off medication Physical/Sexual Abuse/Trauma History: Denies history of verbal, physical or sexual abuse as well as DV relationship. No service Additional Comment: Reports history of 2 previous misdemeanir arrests on charges of drinkingi in public. No probation currently Vital Signs: Vital Signs - 24 hr 06/23/17 06/23/17 06/23/17 13:30 20:43 23:06 Temperature 98.0 F Pulse Rate 100 H 106 H 106 H Respiratory 18 Rate Blood Pressure 135/87 156/82 156/82 06/24/17 06/24/17 01:14 03:30 Temperature Pulse Rate Respiratory 18 18 Rate Blood Pressure Allergies/Adverse Reactions: Allergies Allergy/AdvReac Type Severity Reaction Status Date / Time No Known Allergies Allergy Verified 06/23/17 23:16 Date of last physical exam: 06/23/17 Concur with the findings of this exam: Yes - Substance Abuse/Tx History Hx Alcohol Use: Yes Hx Substance Use: No Substance Use Type: Alcohol (Started drinking alcohol at age 11, consumes 2 pints of vodka &4x 25oz of beer daily. Last drank on 06/22/17) Hx Substance Use Treatment: Yes (3 previous inpt detox & 2 inpt rehab admissions ) Mental Status Exam - Mental Status Exam Alert and Oriented to: Time, Place, Person Cognitive Function: Fair Patient Appearance: Well Groomed Mood: Hopeful, Euthymic Affect: Normal Range Patient Behavior: Cooperative Voice Loudness: Normal Thought Process: Intact, Goal Oriented Thought Disorder: Not Present Hallucinations: Denies Suicidal Ideation: Denies, Past, Plan (Took pills in 2009) Homicidal Ideation: Denies Insight/Judgement: Fair Sleep: Poorly Appetite: Good Muscle strength/Tone: Normal Gait/Station: Normal Psychiatric Findings - Problem List ([place] 1, 2,3) (1) Alcohol dependence Current Visit: Yes Status: Acute (2) Nicotine dependence Current Visit: Yes Status: Chronic Qualifiers: Nicotine product type: cigarettes Substance use status: uncomplicated Qualified Code(s): F17.210 - Nicotine dependence, cigarettes, uncomplicated; F17.210 - Nicotine dependence, cigarettes, uncomplicated (3) MDD (major depressive disorder), recurrent episode, severe Current Visit: Yes Status: Acute (4) Asthma Current Visit: Yes Status: Chronic Qualifiers: Asthma severity: mild (5) COPD (chronic obstructive pulmonary disease) Current Visit: Yes Status: Chronic Qualifiers: COPD type: unspecified COPD Qualified Code(s): J44.9 - Chronic obstructive pulmonary disease, unspecified; J44.9 - Chronic obstructive pulmonary disease, unspecified; J44.9 - Chronic obstructive pulmonary disease, unspecified; J44.9 - Chronic obstructive pulmonary disease, unspecified (6) DM2 (diabetes mellitus, type 2) Current Visit: Yes Status: Chronic Qualifiers: Diabetes mellitus complication status: without complication (7) Essential hypertension Current Visit: Yes Status: Chronic (8) GERD (gastroesophageal reflux disease) Current Visit: Yes Status: Chronic Qualifiers: Esophagitis presence: without esophagitis Qualified Code(s): K21.9 - Gastro-esophageal reflux disease without esophagitis; K21.9 - Gastro- esophageal reflux disease without esophagitis; K21.9 - Gastro-esophageal reflux disease without esophagitis (9) Hyperlipidemia Current Visit: Yes Status: Chronic Qualifiers: Hyperlipidemia type: pure hypercholesterolemia Qualified Code(s): E78.00 - Pure hypercholesterolemia, unspecified; E78.00 - Pure hypercholesterolemia, unspecified; E78.00 - Pure hypercholesterolemia, unspecified; E78.0 - Pure hypercholesterolemia (10) Seizure Current Visit: No Status: Chronic - Initial Treatment Plan Initial Treatment Plan: 1) Start Zoloft 100 mg po daily and Trazadone 100 mg po HS. 2) Monitor progress
[2017-06-24] MEDS: PRENATAL VITAMINS W/ FOLIC ACID TABLET (FP) PO SCH (09:47)
[2017-06-24] MEDS: METOPROLOL TARTRATE 25 MG TABLET (FP) PO SCH ×2 (09:47→21:13)
[2017-06-24] MEDS: levETIRAcetam 500 MG TABLET (FP) PO SCH ×2 (09:47→21:13)
[2017-06-24] MEDS: IBUPROFEN 400 MG TABLET (FP) PO PRN ×2 (09:48→15:53)
[2017-06-24] MEDS: NICOTINE 21 MG/24 HOURS TOPICAL PATCH TD SCH (09:51)
[2017-06-24] MEDS: BUDESONIDE/FORMETEROL FUMARATE 160/4.5 mcg INHALER IH SCH ×2 (09:51→21:14)
[2017-06-24 13:45] LABS: MCH 26.9 pg (25.7-33.7); MCHC 31.1 g/dl (32.0-35.9); MEAN CELL VOLUME 86.4 fl (80-96); PLATELET COUNT 376 K/MM3 (134-434); RDW 23.2 % (11.9-15.9)
[2017-06-24] MEDS: SERTRALINE HCL 50 MG TABLET (FP) PO SCH (13:54)
[2017-06-24 15:03] LABS: ALBUMIN 3.5 g/dl (3.4-5.0); ALK PHOS 112 U/L (45-117); ANION GAP 7 (8-16); BILIRUBIN,TOTAL 0.4 mg/dL (0.2-1.0); CALCIUM 8.7 mg/dL (8.5-10.1); CO2 25 mmol/L (21-32); GLUCOSE,RANDOM 75 mg/dL (74-106); SGOT/AST 27 U/L (15-37); SGPT/ALT 27 U/L (12-78); TOT PROT 7.4 g/dl (6.4-8.2)
[2017-06-24] MEDS: THIAMINE HCL 100 MG TABLET (FP) PO SCH (21:12)
[2017-06-24] MEDS: traZODone HCL 100 MG TABLET (FP) PO SCH (21:13)
[2017-06-24] MEDS: diphenhydrAMINE HCL 50 MG CAPSULE PO PRN (21:13)
[2017-06-25] MEDS: metFORMIN HCL 500 MG TABLET (FP) PO SCH (06:26)
[2017-06-25] MEDS: IBUPROFEN 400 MG TABLET (FP) PO PRN (06:27)
[2017-06-25] MEDS: METOPROLOL TARTRATE 25 MG TABLET (FP) PO SCH ×2 (10:32→21:10)
[2017-06-25] MEDS: PRENATAL VITAMINS W/ FOLIC ACID TABLET (FP) PO SCH (10:32)
[2017-06-25] MEDS: levETIRAcetam 500 MG TABLET (FP) PO SCH ×2 (10:32→21:10)
[2017-06-25] MEDS: SERTRALINE HCL 50 MG TABLET (FP) PO SCH (10:32)
[2017-06-25] MEDS: NICOTINE 21 MG/24 HOURS TOPICAL PATCH TD SCH (10:34)
[2017-06-25] MEDS: BUDESONIDE/FORMETEROL FUMARATE 160/4.5 mcg INHALER IH SCH ×2 (10:35→21:11)
[2017-06-25 11:50] LABS: HIV 1 & 2 AB NEGATIVE; HIV 1 AGp24 NEGATIVE
--- NOTE | 2017-06-25 13:08 | EKG ---
Test Reason : Blood Pressure : / mmHG Vent. Rate : 093 BPM Atrial Rate : 093 BPM P-R Int : 164 ms QRS Dur : 090 ms QT Int : 380 ms P-R-T Axes : 068 -02 -13 degrees QTc Int : 472 ms SINUS RHYTHM WITH OCCASIONAL PREMATURE VENTRICULAR COMPLEXES POSSIBLE LEFT ATRIAL ENLARGEMENT LEFT VENTRICULAR HYPERTROPHY ABNORMAL ECG WHEN COMPARED WITH ECG OF 19-DEC-2016 20:00, PREMATURE VENTRICULAR COMPLEXES ARE NOW PRESENT MINIMAL CRITERIA FOR SEPTAL INFARCT ARE NO LONGER PRESENT T WAVE AMPLITUDE HAS DECREASED IN LATERAL LEADS Confirmed by RADHA GRANADOS MD ([id number]) on 06/25/2017 1:08:04 PM Referred By: Confirmed By:RADHA GRANADOS MD
--- NOTE | 2017-06-25 13:08 | EKG ---
Test Reason : Blood Pressure : / mmHG Vent. Rate : 092 BPM Atrial Rate : 092 BPM P-R Int : 164 ms QRS Dur : 092 ms QT Int : 380 ms P-R-T Axes : 070 003 -10 degrees QTc Int : 469 ms NORMAL SINUS RHYTHM POSSIBLE LEFT ATRIAL ENLARGEMENT LEFT VENTRICULAR HYPERTROPHY CANNOT RULE OUT SEPTAL INFARCT (CITED ON OR BEFORE 19-DEC-2016) ABNORMAL ECG WHEN COMPARED WITH ECG OF 19-DEC-2016 20:00, QUESTIONABLE CHANGE IN INITIAL FORCES OF SEPTAL LEADS T WAVE AMPLITUDE HAS DECREASED IN LATERAL LEADS Confirmed by RADHA GRANADOS MD ([id number]) on 06/25/2017 1:08:38 PM Referred By: Confirmed By:RADHA GRANADOS MD
[2017-06-25] MEDS: diphenhydrAMINE HCL 50 MG CAPSULE PO PRN (21:10)
[2017-06-25] MEDS: THIAMINE HCL 100 MG TABLET (FP) PO SCH (21:10)
[2017-06-25] MEDS: traZODone HCL 100 MG TABLET (FP) PO SCH (21:10)
[2017-06-26] MEDS: metFORMIN HCL 500 MG TABLET (FP) PO SCH (06:23)
[2017-06-26] MEDS: IBUPROFEN 400 MG TABLET (FP) PO PRN (06:24)
[2017-06-26] MEDS: METOPROLOL TARTRATE 25 MG TABLET (FP) PO SCH ×2 (10:53→21:34)
[2017-06-26] MEDS: PRENATAL VITAMINS W/ FOLIC ACID TABLET (FP) PO SCH (10:53)
[2017-06-26] MEDS: SERTRALINE HCL 50 MG TABLET (FP) PO SCH (10:53)
[2017-06-26] MEDS: levETIRAcetam 500 MG TABLET (FP) PO SCH ×2 (10:53→21:34)
[2017-06-26] MEDS: BUDESONIDE/FORMETEROL FUMARATE 160/4.5 mcg INHALER IH SCH ×2 (10:54→21:35)
[2017-06-26] MEDS: ACETAMINOPHEN 325 MG TABLET (FP) PO PRN (10:54)
[2017-06-26] MEDS: NICOTINE 21 MG/24 HOURS TOPICAL PATCH TD SCH (10:56)
[2017-06-26] MEDS: THIAMINE HCL 100 MG TABLET (FP) PO SCH (21:34)
[2017-06-26] MEDS: diphenhydrAMINE HCL 50 MG CAPSULE PO PRN (21:34)
[2017-06-26] MEDS: traZODone HCL 100 MG TABLET (FP) PO SCH (21:34)
[2017-06-27] MEDS: metFORMIN HCL 500 MG TABLET (FP) PO SCH (06:37)
[2017-06-27] MEDS: IBUPROFEN 400 MG TABLET (FP) PO PRN (06:38)
[2017-06-27] MEDS: SERTRALINE HCL 50 MG TABLET (FP) PO SCH (10:02)
[2017-06-27] MEDS: PRENATAL VITAMINS W/ FOLIC ACID TABLET (FP) PO SCH (10:02)
[2017-06-27] MEDS: NICOTINE 21 MG/24 HOURS TOPICAL PATCH TD SCH (10:02)
[2017-06-27] MEDS: METOPROLOL TARTRATE 25 MG TABLET (FP) PO SCH ×2 (10:02→21:59)
[2017-06-27] MEDS: levETIRAcetam 500 MG TABLET (FP) PO SCH ×2 (10:02→21:59)
[2017-06-27] MEDS: BUDESONIDE/FORMETEROL FUMARATE 160/4.5 mcg INHALER IH SCH ×2 (10:02→22:00)
[2017-06-27] MEDS: ACETAMINOPHEN 325 MG TABLET (FP) PO PRN (14:17)
[2017-06-27] MEDS ORDERED: LISINOPRIL 10 MG TABLET (FP) PO ONE (16:01)
[2017-06-27] MEDS: traZODone HCL 100 MG TABLET (FP) PO SCH (21:58)
[2017-06-27] MEDS: LISINOPRIL 10 MG TABLET (FP) PO SCH (21:59)
[2017-06-27] MEDS: THIAMINE HCL 100 MG TABLET (FP) PO SCH (21:59)
[2017-06-27] MEDS: diphenhydrAMINE HCL 50 MG CAPSULE PO PRN (21:59)
[2017-06-28] MEDS: metFORMIN HCL 500 MG TABLET (FP) PO SCH (06:33)
[2017-06-28] MEDS: LISINOPRIL 10 MG TABLET (FP) PO SCH ×2 (10:03→21:25)
[2017-06-28] MEDS: levETIRAcetam 500 MG TABLET (FP) PO SCH ×2 (10:03→21:25)
[2017-06-28] MEDS: PRENATAL VITAMINS W/ FOLIC ACID TABLET (FP) PO SCH (10:03)
[2017-06-28] MEDS: NICOTINE 21 MG/24 HOURS TOPICAL PATCH TD SCH (10:03)
[2017-06-28] MEDS: BUDESONIDE/FORMETEROL FUMARATE 160/4.5 mcg INHALER IH SCH ×2 (10:03→22:00)
[2017-06-28] MEDS: SERTRALINE HCL 50 MG TABLET (FP) PO SCH (10:03)
[2017-06-28] MEDS: METOPROLOL TARTRATE 25 MG TABLET (FP) PO SCH ×2 (10:03→21:25)
[2017-06-28] MEDS: traZODone HCL 100 MG TABLET (FP) PO SCH (21:25)
[2017-06-28] MEDS: diphenhydrAMINE HCL 50 MG CAPSULE PO PRN (21:25)
[2017-06-28] MEDS: THIAMINE HCL 100 MG TABLET (FP) PO SCH (22:00)
[2017-06-29] MEDS: metFORMIN HCL 500 MG TABLET (FP) PO SCH (07:04)
[2017-06-29] MEDS: PRENATAL VITAMINS W/ FOLIC ACID TABLET (FP) PO SCH (10:36)
[2017-06-29] MEDS: LISINOPRIL 10 MG TABLET (FP) PO SCH ×2 (10:37→21:49)
[2017-06-29] MEDS: METOPROLOL TARTRATE 25 MG TABLET (FP) PO SCH ×2 (10:37→21:49)
[2017-06-29] MEDS: IBUPROFEN 400 MG TABLET (FP) PO PRN (10:37)
[2017-06-29] MEDS: levETIRAcetam 500 MG TABLET (FP) PO SCH ×2 (10:37→21:49)
[2017-06-29] MEDS: NICOTINE 21 MG/24 HOURS TOPICAL PATCH TD SCH (10:38)
[2017-06-29] MEDS: BUDESONIDE/FORMETEROL FUMARATE 160/4.5 mcg INHALER IH SCH ×2 (10:39→21:48)
[2017-06-29] MEDS: SERTRALINE HCL 50 MG TABLET (FP) PO SCH (10:40)
[2017-06-29] MEDS ORDERED: HYDROCORTISONE 1% TOPICAL CREAM 30 GM TUBE TP PRN (14:53)
[2017-06-29] MEDS ORDERED: CYCLOBENZAPRINE HCL 5 MG TABLET PO PRN (14:53)
[2017-06-29] MEDS: traZODone HCL 100 MG TABLET (FP) PO SCH (21:49)
[2017-06-29] MEDS: THIAMINE HCL 100 MG TABLET (FP) PO SCH (21:49)
[2017-06-29] MEDS: diphenhydrAMINE HCL 50 MG CAPSULE PO PRN (21:49)
[2017-06-30] MEDS: metFORMIN HCL 500 MG TABLET (FP) PO SCH (06:44)
[2017-06-30] MEDS: ACETAMINOPHEN 325 MG TABLET (FP) PO PRN (07:28)
[2017-06-30] MEDS: PRENATAL VITAMINS W/ FOLIC ACID TABLET (FP) PO SCH (10:28)
[2017-06-30] MEDS: SERTRALINE HCL 50 MG TABLET (FP) PO SCH (10:28)
[2017-06-30] MEDS: METOPROLOL TARTRATE 25 MG TABLET (FP) PO SCH ×2 (10:29→21:16)
[2017-06-30] MEDS: NICOTINE 21 MG/24 HOURS TOPICAL PATCH TD SCH (10:29)
[2017-06-30] MEDS: levETIRAcetam 500 MG TABLET (FP) PO SCH ×2 (10:29→21:15)
[2017-06-30] MEDS: LISINOPRIL 10 MG TABLET (FP) PO SCH ×2 (10:29→21:16)
[2017-06-30] MEDS: BUDESONIDE/FORMETEROL FUMARATE 160/4.5 mcg INHALER IH SCH ×2 (10:31→21:16)
[2017-06-30] MEDS: THIAMINE HCL 100 MG TABLET (FP) PO SCH (21:15)
[2017-06-30] MEDS: diphenhydrAMINE HCL 50 MG CAPSULE PO PRN (21:15)
[2017-06-30] MEDS: traZODone HCL 100 MG TABLET (FP) PO SCH (21:15)
[2017-07-01] MEDS: metFORMIN HCL 500 MG TABLET (FP) PO SCH (07:15)
[2017-07-01] MEDS: PRENATAL VITAMINS W/ FOLIC ACID TABLET (FP) PO SCH (10:33)
[2017-07-01] MEDS: SERTRALINE HCL 50 MG TABLET (FP) PO SCH (10:34)
[2017-07-01] MEDS: ACETAMINOPHEN 325 MG TABLET (FP) PO PRN ×2 (10:34→21:22)
[2017-07-01] MEDS: METOPROLOL TARTRATE 25 MG TABLET (FP) PO SCH ×2 (10:34→21:22)
[2017-07-01] MEDS: LISINOPRIL 10 MG TABLET (FP) PO SCH ×2 (10:34→21:23)
[2017-07-01] MEDS: levETIRAcetam 500 MG TABLET (FP) PO SCH ×2 (10:34→21:24)
[2017-07-01] MEDS: BUDESONIDE/FORMETEROL FUMARATE 160/4.5 mcg INHALER IH SCH ×2 (10:35→21:21)
[2017-07-01] MEDS: NICOTINE 21 MG/24 HOURS TOPICAL PATCH TD SCH (10:36)
--- NOTE | 2017-07-01 15:22 | PN ---
Psychiatric Progress Note Vital Signs: Vital Signs Period Temp Pulse Resp BP Sys/Cabrera Pulse Ox Last 24 Hr 97.7 F 74-88 18-20 113-145/64-86 Date of Session: 07/01/17 Chief Complaint:: Insomnia ROS: Asthma/COPD, HTN, HLD, type 2 DM, Hep C, GERD Current Medications: Active Medications Generic Name Dose Route Start Last Admin Trade Name Freq PRN Reason Stop Dose Admin Acetaminophen 650 mg 06/23/17 14:33 07/01/17 10:34 Tylenol - PO 650 mg Q4H PRN Administration PAIN Al Hydroxide/Mg Hydroxide 30 ml 06/23/17 14:33 Mylanta Oral Suspension - PO Q6H PRN DYSPEPSIA Albuterol Sulfate 2 puff 06/23/17 14:40 Ventolin Hfa Inhaler - IH Q4H PRN SHORTNESS OF BREATH Budesonide/Formoterol Fumarate 1 puff 06/23/17 22:00 07/01/17 10:35 Symbicort 160/4.5mcg - IH 1 puff BID MADDIE Administration Cyclobenzaprine HCl 5 mg 06/29/17 14:53 Cyclobenzaprine Hcl PO TID PRN BACK PAIN Diphenhydramine HCl 50 mg 06/23/17 14:33 06/30/17 21:15 Benadryl - PO 50 mg HSMR1 PRN Administration INSOMNIA Eucalyptus/Menthol/Phenol/Sorbitol 1 each 06/23/17 14:33 Cepastat Lozenge - MM Q4H PRN SORE THROAT Guaifenesin 10 ml 06/23/17 14:33 Robitussin Dm - PO Q6H PRN COUGH Hydrocortisone 1 applic 06/29/17 14:53 Hytone 1% Cream - TP DAILY PRN FOR ITCHING Hydroxyzine Pamoate 50 mg 06/23/17 14:33 Vistaril - PO Q4H PRN AGITATION Ibuprofen 400 mg 06/23/17 14:33 06/29/17 10:37 Motrin - PO 400 mg Q6H PRN Administration SEVERE PAIN Levetiracetam 500 mg 06/23/17 22:00 07/01/17 10:34 Keppra - PO 500 mg BID MADDIE Administration Lisinopril 10 mg 06/27/17 22:00 07/01/17 10:34 Prinivil PO 10 mg BID MADDIE Administration Loperamide HCl 4 mg 06/23/17 14:33 Imodium - PO Q6H PRN DIARRHEA Magnesium Citrate 300 ml 06/23/17 14:33 Citroma - PO Q48H PRN CONSTIPATION Magnesium Hydroxide 30 ml 06/23/17 14:33 Milk Of Magnesia - PO DAILY PRN CONSTIPATION Metformin HCl 500 mg 06/24/17 07:00 07/01/17 07:15 Glucophage - PO 500 mg ACBK MADDIE Administration Metoprolol Tartrate 25 mg 06/23/17 22:00 07/01/17 10:34 Lopressor - PO 25 mg BID MADDIE Administration Nicotine 21 mg 06/24/17 10:00 07/01/17 10:36 Nicoderm Patch - TD 21 mg DAILY MADDIE Administration Nicotine Polacrilex 4 mg 06/23/17 14:33 Nicorette Gum - BC Q2H PRN NICOTINE REPLACEMENT RX Multivit/Folic Acid/Iron 1 tab 06/24/17 10:00 07/01/17 10:33 Vitamins (Sjr) - PO 1 tab DAILY MADDIE Administration Pseudoephedrine/Triprolidine 1 combo 06/23/17 14:33 Actifed - PO TID PRN NASAL CONGESTION Sertraline HCl 100 mg 06/24/17 13:00 07/01/17 10:34 Zoloft - PO 100 mg DAILY MADDIE Administration Thiamine HCl 100 mg 06/23/17 22:00 06/30/17 21:15 Vitamin B1 - PO 100 mg HS MADDIE Administration Trazodone HCl 150 mg 07/01/17 22:00 Desyrel - PO HS [facility] Medication(s) Change(s): Increase Trazadone dosage to 150 mg po HS Current Side Effect: No Lab tests ordered: Yes Lab tests reviewed: Yes Provider note:: Patient experiencing difficulty to sleep. Told auto service writer that he has been sleeping poorly despite taking Trazadone 100 mg po HS. Requests to increase dose to 200 mg which he tolerated and was very helpful to him in the past. Discussed increasing dose by 50 mg at a time to avoid excesive drowsiness Total face to face time:: 25 Mental Status Exam - Mental Status Exam Alert and Oriented to: Time, Place, Person Cognitive Function: Fair Patient Appearance: Well Groomed Mood: Hopeful, Euthymic Affect: Appropriate Patient Behavior: Cooperative Speech Pattern: Clear Voice Loudness: Normal Thought Process: Intact, Goal Oriented Thought Disorder: Not Present Hallucinations: Denies Suicidal Ideation: Denies Homicidal Ideation: Denies Insight/Judgement: Fair Sleep: Poorly Appetite: Good Muscle strength/Tone: Normal Gait/Station: Normal Psychiatric Treatment Plan - Problem List (1) Alcohol dependence Current Visit: Yes (2) Nicotine dependence Current Visit: Yes Qualifiers: Nicotine product type: cigarettes Substance use status: uncomplicated Qualified Code(s): F17.210 - Nicotine dependence, cigarettes, uncomplicated; F17.210 - Nicotine dependence, cigarettes, uncomplicated (3) MDD (major depressive disorder), recurrent episode, severe Current Visit: Yes (4) Asthma Current Visit: Yes Qualifiers: Asthma severity: mild (5) COPD (chronic obstructive pulmonary disease) Current Visit: Yes Qualifiers: COPD type: unspecified COPD Qualified Code(s): J44.9 - Chronic obstructive pulmonary disease, unspecified; J44.9 - Chronic obstructive pulmonary disease, unspecified; J44.9 - Chronic obstructive pulmonary disease, unspecified; J44.9 - Chronic obstructive pulmonary disease, unspecified (6) DM2 (diabetes mellitus, type 2) Current Visit: Yes Qualifiers: Diabetes mellitus complication status: without complication (7) Essential hypertension Current Visit: Yes (8) GERD (gastroesophageal reflux disease) Current Visit: Yes Qualifiers: Esophagitis presence: without esophagitis Qualified Code(s): K21.9 - Gastro-esophageal reflux disease without esophagitis; K21.9 - Gastro- esophageal reflux disease without esophagitis; K21.9 - Gastro-esophageal reflux disease without esophagitis (9) Hyperlipidemia Current Visit: Yes Qualifiers: Hyperlipidemia type: pure hypercholesterolemia Qualified Code(s): E78.00 - Pure hypercholesterolemia, unspecified; E78.00 - Pure hypercholesterolemia, unspecified; E78.00 - Pure hypercholesterolemia, unspecified; E78.0 - Pure hypercholesterolemia (10) Seizure Current Visit: No Initial treatment plan: 1) Discontinue Trazadone 100 mg po HS. 2) Start Trazadone 150 mg po HS. 3) Monitor progress
[2017-07-01] MEDS: THIAMINE HCL 100 MG TABLET (FP) PO SCH (21:22)
[2017-07-01] MEDS: diphenhydrAMINE HCL 50 MG CAPSULE PO PRN (21:22)
[2017-07-01] MEDS: traZODone HCL 50 MG TABLET (FP) PO SCH (21:23)
[2017-07-02] MEDS: ACETAMINOPHEN 325 MG TABLET (FP) PO PRN ×3 (06:11→16:56)
[2017-07-02] MEDS: metFORMIN HCL 500 MG TABLET (FP) PO SCH (06:11)
[2017-07-02] MEDS: levETIRAcetam 500 MG TABLET (FP) PO SCH ×2 (09:46→21:43)
[2017-07-02] MEDS: LISINOPRIL 10 MG TABLET (FP) PO SCH ×2 (09:46→21:43)
[2017-07-02] MEDS: METOPROLOL TARTRATE 25 MG TABLET (FP) PO SCH ×2 (09:46→21:43)
[2017-07-02] MEDS: PRENATAL VITAMINS W/ FOLIC ACID TABLET (FP) PO SCH (09:46)
[2017-07-02] MEDS: SERTRALINE HCL 50 MG TABLET (FP) PO SCH (09:46)
[2017-07-02] MEDS: NICOTINE 21 MG/24 HOURS TOPICAL PATCH TD SCH (09:49)
[2017-07-02] MEDS: BUDESONIDE/FORMETEROL FUMARATE 160/4.5 mcg INHALER IH SCH ×2 (09:49→21:44)
[2017-07-02] MEDS: THIAMINE HCL 100 MG TABLET (FP) PO SCH (21:43)
[2017-07-02] MEDS: diphenhydrAMINE HCL 50 MG CAPSULE PO PRN (21:43)
[2017-07-02] MEDS: traZODone HCL 50 MG TABLET (FP) PO SCH (21:44)
[2017-07-03] MEDS: ACETAMINOPHEN 325 MG TABLET (FP) PO PRN ×2 (06:11→21:20)
[2017-07-03] MEDS: metFORMIN HCL 500 MG TABLET (FP) PO SCH (06:51)
[2017-07-03] MEDS: BUDESONIDE/FORMETEROL FUMARATE 160/4.5 mcg INHALER IH SCH ×2 (09:41→21:20)
[2017-07-03] MEDS: SERTRALINE HCL 50 MG TABLET (FP) PO SCH (09:41)
[2017-07-03] MEDS: levETIRAcetam 500 MG TABLET (FP) PO SCH ×2 (09:41→21:21)
[2017-07-03] MEDS: PRENATAL VITAMINS W/ FOLIC ACID TABLET (FP) PO SCH (09:41)
[2017-07-03] MEDS: LISINOPRIL 10 MG TABLET (FP) PO SCH ×2 (09:41→21:21)
[2017-07-03] MEDS: METOPROLOL TARTRATE 25 MG TABLET (FP) PO SCH ×2 (09:41→21:23)
[2017-07-03] MEDS: NICOTINE 21 MG/24 HOURS TOPICAL PATCH TD SCH (09:42)
[2017-07-03] MEDS: diphenhydrAMINE HCL 50 MG CAPSULE PO PRN (21:21)
[2017-07-03] MEDS: THIAMINE HCL 100 MG TABLET (FP) PO SCH (21:21)
[2017-07-03] MEDS: traZODone HCL 50 MG TABLET (FP) PO SCH (21:21)
[2017-07-04] MEDS: IBUPROFEN 400 MG TABLET (FP) PO PRN (06:26)
[2017-07-04] MEDS: metFORMIN HCL 500 MG TABLET (FP) PO SCH (07:10)
[2017-07-04] MEDS: SERTRALINE HCL 50 MG TABLET (FP) PO SCH (10:40)
[2017-07-04] MEDS: levETIRAcetam 500 MG TABLET (FP) PO SCH ×2 (10:40→21:24)
[2017-07-04] MEDS: LISINOPRIL 10 MG TABLET (FP) PO SCH ×2 (10:40→21:25)
[2017-07-04] MEDS: PRENATAL VITAMINS W/ FOLIC ACID TABLET (FP) PO SCH (10:40)
[2017-07-04] MEDS: METOPROLOL TARTRATE 25 MG TABLET (FP) PO SCH ×2 (10:40→21:25)
[2017-07-04] MEDS: BUDESONIDE/FORMETEROL FUMARATE 160/4.5 mcg INHALER IH SCH ×2 (10:41→21:22)
[2017-07-04] MEDS: NICOTINE 21 MG/24 HOURS TOPICAL PATCH TD SCH (10:41)
[2017-07-04] MEDS: ACETAMINOPHEN 325 MG TABLET (FP) PO PRN ×2 (16:57→21:22)
[2017-07-04] MEDS: traZODone HCL 50 MG TABLET (FP) PO SCH (21:23)
[2017-07-04] MEDS: THIAMINE HCL 100 MG TABLET (FP) PO SCH (21:23)
[2017-07-04] MEDS: diphenhydrAMINE HCL 50 MG CAPSULE PO PRN (21:24)
[2017-07-05] MEDS: IBUPROFEN 400 MG TABLET (FP) PO PRN (06:36)
[2017-07-05] MEDS: metFORMIN HCL 500 MG TABLET (FP) PO SCH (07:26)
[2017-07-05] MEDS: METOPROLOL TARTRATE 25 MG TABLET (FP) PO SCH ×2 (10:07→21:32)
[2017-07-05] MEDS: SERTRALINE HCL 50 MG TABLET (FP) PO SCH (10:07)
[2017-07-05] MEDS: BUDESONIDE/FORMETEROL FUMARATE 160/4.5 mcg INHALER IH SCH ×2 (10:07→21:32)
[2017-07-05] MEDS: PRENATAL VITAMINS W/ FOLIC ACID TABLET (FP) PO SCH (10:07)
[2017-07-05] MEDS: ACETAMINOPHEN 325 MG TABLET (FP) PO PRN (10:07)
[2017-07-05] MEDS: levETIRAcetam 500 MG TABLET (FP) PO SCH ×2 (10:07→21:32)
[2017-07-05] MEDS: LISINOPRIL 10 MG TABLET (FP) PO SCH ×2 (10:07→21:32)
[2017-07-05] MEDS: NICOTINE 21 MG/24 HOURS TOPICAL PATCH TD SCH (10:08)
[2017-07-05] MEDS: diphenhydrAMINE HCL 50 MG CAPSULE PO PRN (21:32)
[2017-07-05] MEDS: traZODone HCL 50 MG TABLET (FP) PO SCH (21:32)
[2017-07-05] MEDS: THIAMINE HCL 100 MG TABLET (FP) PO SCH (21:33)
[2017-07-06] MEDS: metFORMIN HCL 500 MG TABLET (FP) PO SCH (06:27)
[2017-07-06] MEDS: ACETAMINOPHEN 325 MG TABLET (FP) PO PRN ×2 (06:28→10:32)
[2017-07-06] MEDS: PRENATAL VITAMINS W/ FOLIC ACID TABLET (FP) PO SCH (10:30)
[2017-07-06] MEDS: SERTRALINE HCL 50 MG TABLET (FP) PO SCH (10:30)
[2017-07-06] MEDS: METOPROLOL TARTRATE 25 MG TABLET (FP) PO SCH ×2 (10:31→21:37)
[2017-07-06] MEDS: LISINOPRIL 10 MG TABLET (FP) PO SCH ×2 (10:31→21:37)
[2017-07-06] MEDS: levETIRAcetam 500 MG TABLET (FP) PO SCH ×2 (10:31→21:37)
[2017-07-06] MEDS: BUDESONIDE/FORMETEROL FUMARATE 160/4.5 mcg INHALER IH SCH ×2 (10:34→21:37)
[2017-07-06] MEDS: NICOTINE 21 MG/24 HOURS TOPICAL PATCH TD SCH (10:34)
--- NOTE | 2017-07-06 10:46 | PN ---
Psychiatric Progress Note Vital Signs: Vital Signs Period Temp Pulse Resp BP Sys/Cabrera Pulse Ox Last 24 Hr 97.7 F 85-87 16-20 128-134/81-81 Date of Session: 07/06/17 Chief Complaint:: Discharge Note HPI: Patient addressing Alcohol Dependence comorbid with Nicotine Dependence and MDD, recurrent episode, severe ROS: Asthma/COPD, HTN, Hyperlipidemia, type 2 DM, GERD were medically managed Current Medications: Active Medications Generic Name Dose Route Start Last Admin Trade Name Freq PRN Reason Stop Dose Admin Acetaminophen 650 mg 06/23/17 14:33 07/06/17 10:32 Tylenol - PO 650 mg Q4H PRN Administration PAIN Al Hydroxide/Mg Hydroxide 30 ml 06/23/17 14:33 Mylanta Oral Suspension - PO Q6H PRN DYSPEPSIA Albuterol Sulfate 2 puff 06/23/17 14:40 Ventolin Hfa Inhaler - IH Q4H PRN SHORTNESS OF BREATH Budesonide/Formoterol Fumarate 1 puff 06/23/17 22:00 07/06/17 10:34 Symbicort 160/4.5mcg - IH 1 puff BID MADDIE Administration Cyclobenzaprine HCl 5 mg 06/29/17 14:53 Cyclobenzaprine Hcl PO TID PRN BACK PAIN Diphenhydramine HCl 50 mg 06/23/17 14:33 07/05/17 21:32 Benadryl - PO 50 mg HSMR1 PRN Administration INSOMNIA Eucalyptus/Menthol/Phenol/Sorbitol 1 each 06/23/17 14:33 Cepastat Lozenge - MM Q4H PRN SORE THROAT Guaifenesin 10 ml 06/23/17 14:33 Robitussin Dm - PO Q6H PRN COUGH Hydrocortisone 1 applic 06/29/17 14:53 Hytone 1% Cream - TP DAILY PRN FOR ITCHING Hydroxyzine Pamoate 50 mg 06/23/17 14:33 Vistaril - PO Q4H PRN AGITATION Ibuprofen 800 mg 07/03/17 11:29 07/05/17 06:36 Motrin - PO 800 mg Q6H PRN Administration SEVERE PAIN Levetiracetam 500 mg 06/23/17 22:00 07/06/17 10:31 Keppra - PO 500 mg BID MADDIE Administration Lisinopril 10 mg 06/27/17 22:00 07/06/17 10:31 Prinivil PO 10 mg BID MADDIE Administration Loperamide HCl 4 mg 06/23/17 14:33 Imodium - PO Q6H PRN DIARRHEA Magnesium Citrate 300 ml 06/23/17 14:33 Citroma - PO Q48H PRN CONSTIPATION Magnesium Hydroxide 30 ml 06/23/17 14:33 Milk Of Magnesia - PO DAILY PRN CONSTIPATION Metformin HCl 500 mg 06/24/17 07:00 07/06/17 06:27 Glucophage - PO 500 mg ACBK MADDIE Administration Metoprolol Tartrate 25 mg 06/23/17 22:00 07/06/17 10:31 Lopressor - PO 25 mg BID MADDIE Administration Nicotine 21 mg 06/24/17 10:00 07/06/17 10:34 Nicoderm Patch - TD 21 mg DAILY MADDIE Administration Nicotine Polacrilex 4 mg 06/23/17 14:33 Nicorette Gum - BC Q2H PRN NICOTINE REPLACEMENT RX Multivit/Folic Acid/Iron 1 tab 06/24/17 10:00 07/06/17 10:30 Vitamins (Sjr) - PO 1 tab DAILY MADDIE Administration Pseudoephedrine/Triprolidine 1 combo 06/23/17 14:33 Actifed - PO TID PRN NASAL CONGESTION Sertraline HCl 100 mg 06/24/17 13:00 07/06/17 10:30 Zoloft - PO 100 mg DAILY MADDIE Administration Thiamine HCl 100 mg 06/23/17 22:00 07/05/17 21:33 Vitamin B1 - PO 100 mg HS MADDIE Administration Trazodone HCl 150 mg 07/01/17 22:00 07/05/17 21:32 Desyrel - PO 150 mg HS MADDIE Administration Current Side Effect: No Lab tests ordered: Yes Lab tests reviewed: Yes Provider note:: Patient will complete this program on 07/07/17. He has met his treatment goals and will continue to address his issues in outpatient treatment at [facility]. Told administrative underwriter that from his participation in this program, he has learned to be self confident and honest with himself. He responded well to Zoloft 100 mg po daily and Trazadone 150 mg po HS. Scripts for 30 days supply of these medications will be electronically transmitted to [facility] at [address] [place] [id number]. He is stable for discharged on 07/07/17 Total face to face time:: 35 Mental Status Exam - Mental Status Exam Alert and Oriented to: Time, Place, Person Cognitive Function: Fair Patient Appearance: Well Groomed Mood: Hopeful, Euthymic Affect: Appropriate Patient Behavior: Cooperative Speech Pattern: Clear Voice Loudness: Normal Thought Process: Intact, Goal Oriented Thought Disorder: Not Present Hallucinations: Denies Suicidal Ideation: Denies Homicidal Ideation: Denies Insight/Judgement: Fair Sleep: Fair Appetite: Good Muscle strength/Tone: Normal Gait/Station: Normal Psychiatric Treatment Plan - Problem List (1) Alcohol dependence Current Visit: Yes (2) Nicotine dependence Current Visit: Yes Qualifiers: Nicotine product type: cigarettes Substance use status: uncomplicated Qualified Code(s): F17.210 - Nicotine dependence, cigarettes, uncomplicated; F17.210 - Nicotine dependence, cigarettes, uncomplicated (3) MDD (major depressive disorder), recurrent episode, severe Current Visit: Yes (4) Asthma Current Visit: Yes Qualifiers: Asthma severity: mild (5) COPD (chronic obstructive pulmonary disease) Current Visit: Yes Qualifiers: COPD type: unspecified COPD Qualified Code(s): J44.9 - Chronic obstructive pulmonary disease, unspecified; J44.9 - Chronic obstructive pulmonary disease, unspecified; J44.9 - Chronic obstructive pulmonary disease, unspecified; J44.9 - Chronic obstructive pulmonary disease, unspecified (6) DM2 (diabetes mellitus, type 2) Current Visit: Yes Qualifiers: Diabetes mellitus complication status: without complication (7) Essential hypertension Current Visit: Yes (8) GERD (gastroesophageal reflux disease) Current Visit: Yes Qualifiers: Esophagitis presence: without esophagitis Qualified Code(s): K21.9 - Gastro-esophageal reflux disease without esophagitis; K21.9 - Gastro- esophageal reflux disease without esophagitis; K21.9 - Gastro-esophageal reflux disease without esophagitis (9) Hyperlipidemia Current Visit: Yes Qualifiers: Hyperlipidemia type: pure hypercholesterolemia Qualified Code(s): E78.00 - Pure hypercholesterolemia, unspecified; E78.00 - Pure hypercholesterolemia, unspecified; E78.00 - Pure hypercholesterolemia, unspecified; E78.0 - Pure hypercholesterolemia (10) Seizure Current Visit: No Initial treatment plan: Patient will be discharged tomorrow and referred to [facility] for fci treatment
[2017-07-06] MEDS: THIAMINE HCL 100 MG TABLET (FP) PO SCH (21:36)
[2017-07-06] MEDS: diphenhydrAMINE HCL 50 MG CAPSULE PO PRN (21:36)
[2017-07-06] MEDS: traZODone HCL 50 MG TABLET (FP) PO SCH (21:37)
[2017-07-07] MEDS: metFORMIN HCL 500 MG TABLET (FP) PO SCH (06:28)
[2017-07-07 07:11] VITALS: BP 127/79; PULSE 74; TEMP 97.3
[2017-07-07] MEDS: PRENATAL VITAMINS W/ FOLIC ACID TABLET (FP) PO SCH (09:24)
[2017-07-07] MEDS: SERTRALINE HCL 50 MG TABLET (FP) PO SCH (09:25)
[2017-07-07] MEDS: LISINOPRIL 10 MG TABLET (FP) PO SCH (09:25)
[2017-07-07] MEDS: METOPROLOL TARTRATE 25 MG TABLET (FP) PO SCH (09:25)
[2017-07-07] MEDS: levETIRAcetam 500 MG TABLET (FP) PO SCH (09:25)
[2017-07-07] MEDS: NICOTINE 21 MG/24 HOURS TOPICAL PATCH TD SCH (09:26)
[2017-07-07] MEDS: BUDESONIDE/FORMETEROL FUMARATE 160/4.5 mcg INHALER IH SCH (09:26)
[2017-07-07] MEDS: ACETAMINOPHEN 325 MG TABLET (FP) PO PRN (09:27)
== END 2017-07-07 10:05 | disposition home or self-care (01) | DRG 772 ==
LOC: YASAS 13:01 → Y3W 17:59
PROVIDERS: ADMIT Psychiatry & Neurology Psychiatry; ATTEND Psychiatry & Neurology Psychiatry
PROC: HZ42ZZZ Group Counseling for Substance Abuse Treatment, Cognitive-Behavioral (ICD-10-PCS; principal; 2017-06-23)
DX: F10.230 Alcohol dependence with withdrawal, uncomplicated (principal); F17.210 Nicotine dependence, cigarettes, uncomplicated; F33.2 Major depressive disorder, recurrent severe without psychotic features; I10 Essential (primary) hypertension; E11.9 Type 2 diabetes mellitus without complications; J45.909 Unspecified asthma, uncomplicated; J44.9 Chronic obstructive pulmonary disease, unspecified; K21.9 Gastro-esophageal reflux disease without esophagitis; E78.00 Pure hypercholesterolemia, unspecified; Z86.69 Personal history of other diseases of the nervous system and sense organs; Z91.5 Personal history of self-harm; Z91.14 Patient's other noncompliance with medication regimen
CPT/HCPCS: 36415; 80053; 81003; 85027; 86593; 87389; 93005; 93010

== ENCOUNTER 2018-02-09 08:45 | Inpatient (IN) | payer OTHER ==
[2018-02-09 10:14] VITALS: BMI 27.9
--- NOTE | 2018-02-09 13:54 | PN ---
BHS CIWA - CIWA Score Nausea/Vomitin Muscle Tremors: 3 Anxiety: 4-Mod. Anxious/Guarded Agitation: 3 Paroxysmal Sweats: 3 Orientation: 0-Oriented Tacttile Disturbances: 4-Moderate Hallucinations
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
[2018-02-09] MEDS ORDERED: NICOTINE POLACRILEX 2 MG GUM BUC PRN (14:46)
[2018-02-09] MEDS ORDERED: MENTHOL/PHENOL 1 EACH UD MM PRN (14:46)
[2018-02-09] MEDS ORDERED: guaiFENesin/D-METHORPHAN HB 10 ML UNIT-DOSE CUPS PO PRN (14:46)
[2018-02-09] MEDS ORDERED: MAGNESIUM HYDROX 2400MG/30ML ORAL SUSPENSION 30 ML CUP PO PRN (14:46)
[2018-02-09] MEDS ORDERED: MAG HYDROX/AL HYDROX/SIMETH 30 ML UNIT-DOSE CUP PO PRN (14:46)
[2018-02-09] MEDS ORDERED: LOPERAMIDE HCL 2 MG CAPSULE PO PRN (14:46)
[2018-02-09] MEDS ORDERED: P-EPHED 60MG/TRIPROLIDI 2.5MG TABLET PO PRN (14:46)
[2018-02-09] MEDS ORDERED: MAGNESIUM CITRATE 300 ML BOTTLE PO PRN (14:46)
[2018-02-09] MEDS ORDERED: chlordiazePOXIDE HCL 25 MG CAPSULE PO PRN (14:46)
[2018-02-09] MEDS ORDERED: chlordiazePOXIDE HCL 25 MG CAPSULE PO ONE (15:30)
[2018-02-09] MEDS ORDERED: ALBUTEROL SO4 18 GM HFA INHALER IH PRN (15:36)
[2018-02-09] MEDS: chlordiazePOXIDE HCL 25 MG CAPSULE PO SCH ×2 (16:52→22:32)
[2018-02-09] MEDS: amLODIPine BESYLATE 5 MG TABLET (FP) PO SCH (16:52)
[2018-02-09] MEDS: metFORMIN HCL 500 MG TABLET (FP) PO SCH (16:52)
[2018-02-09] MEDS: NICOTINE 21 MG/24 HOURS TOPICAL PATCH TD SCH (16:53)
[2018-02-09] MEDS ORDERED: MELATONIN 5 MG TABLETS PO PRN (22:00)
[2018-02-09] MEDS: BACITRACIN 0.9 GM PACKET TP SCH (22:30)
[2018-02-09] MEDS: HYDROCORTISONE 0.5% TOPICAL OINTMENT TUBE TP SCH (22:30)
[2018-02-09] MEDS: THIAMINE HCL 100 MG TABLET (FP) PO SCH (22:30)
[2018-02-09] MEDS: METOPROLOL TARTRATE 25 MG TABLET (FP) PO SCH (22:32)
[2018-02-09] MEDS: BUDESONIDE/FORMETEROL FUMARATE 160/4.5 mcg INHALER IH SCH (22:32)
[2018-02-09] MEDS: levETIRAcetam 500 MG TABLET (FP) PO SCH (22:32)
[2018-02-10] MEDS: chlordiazePOXIDE HCL 25 MG CAPSULE PO SCH ×4 (05:58→22:42)
[2018-02-10] MEDS: PANTOPRAZOLE 40 MG TABLET (FP) PO SCH (05:58)
[2018-02-10] MEDS: ACETAMINOPHEN 325 MG TABLET (FP) PO PRN ×2 (06:00→09:57)
[2018-02-10] MEDS: metFORMIN HCL 500 MG TABLET (FP) PO SCH ×2 (07:12→17:40)
[2018-02-10] MEDS: BUDESONIDE/FORMETEROL FUMARATE 160/4.5 mcg INHALER IH SCH ×2 (09:56→22:41)
[2018-02-10] MEDS: BACITRACIN 0.9 GM PACKET TP SCH ×2 (09:56→22:42)
[2018-02-10] MEDS: amLODIPine BESYLATE 5 MG TABLET (FP) PO SCH (09:57)
[2018-02-10] MEDS: HYDROCORTISONE 0.5% TOPICAL OINTMENT TUBE TP SCH ×2 (09:57→22:43)
[2018-02-10] MEDS: levETIRAcetam 500 MG TABLET (FP) PO SCH ×2 (09:57→22:42)
[2018-02-10] MEDS: METOPROLOL TARTRATE 25 MG TABLET (FP) PO SCH ×2 (09:57→22:43)
[2018-02-10] MEDS: NICOTINE 21 MG/24 HOURS TOPICAL PATCH TD SCH (10:01)
[2018-02-10] MEDS: PRENATAL VITAMINS W/ FOLIC ACID TABLET (FP) PO SCH (10:01)
[2018-02-10 10:18] LABS: URINE APPEARANCE CLEAR; URINE BILIRUBIN NEGATIVE (<2.0 mg/dL); URINE BLOOD NEGATIVE (NEGATIVE); URINE COLOR LTYELLOW; URINE GLUCOSE (UA) NEGATIVE (NEGATIVE); URINE KETONE NEGATIVE (NEGATIVE); URINE LEUK ESTERASE NEGATIVE (NEGATIVE); URINE NITRITE NEGATIVE (NEGATIVE); URINE PROTEIN NEGATIVE (NEGATIVE); URINE UROBILINOGEN NEGATIVE mg/dL (0.2-1.0)
[2018-02-10 10:20] LABS: HEMATOCRIT 39.1 % (35.4-49); MCHC 33.3 g/dl (32.0-35.9); MEAN PLT VOLUME 8.4 fl (7.5-11.1); PLATELET COUNT 397 K/MM3 (134-434); RDW 19.6 % (11.9-15.9); WHITE BLOOD COUNT 6.3 K/mm3 (4.0-10.0)
[2018-02-10 10:55] LABS: CHLORIDE 106 mmol/L (98-107); POTASSIUM 4.5 mmol/L (3.5-5.1); SODIUM 137 mmol/L (136-145)
[2018-02-10 11:22] LABS: ALBUMIN 3.6 g/dl (3.4-5.0); ALK PHOS 133 U/L (45-117); ANION GAP 9 (8-16); BILIRUBIN,TOTAL 0.4 mg/dL (0.2-1.0); BLOOD UREA NITROGEN 8 mg/dL (7-18); CALCIUM 8.9 mg/dL (8.5-10.1); CO2 22 mmol/L (21-32); CREATININE 0.9 mg/dL (0.7-1.3); GLUCOSE,RANDOM 83 mg/dL (74-106); SGOT/AST 27 U/L (15-37); SGPT/ALT 30 U/L (12-78); TOT PROT 7.5 g/dl (6.4-8.2)
--- NOTE | 2018-02-10 11:54 | EKG ---
Test Reason : Blood Pressure : / mmHG Vent. Rate : 093 BPM Atrial Rate : 093 BPM P-R Int : 144 ms QRS Dur : 090 ms QT Int : 378 ms P-R-T Axes : -14 053 057 degrees QTc Int : 469 ms NORMAL SINUS RHYTHM MINIMAL VOLTAGE CRITERIA FOR LVH, MAY BE NORMAL VARIANT BORDERLINE ECG WHEN COMPARED WITH ECG OF 23-JUN-2017 21:43, NON-SPECIFIC CHANGE IN ST SEGMENT IN INFERIOR LEADS T WAVE INVERSION NO LONGER EVIDENT IN INFERIOR LEADS T WAVE AMPLITUDE HAS DECREASED IN LATERAL LEADS Confirmed by ANALY ROWELL, SADIE ([id number]) on 02/10/2018 11:54:27 AM Referred By: Confirmed By:SADIE BECKFORD MD
--- NOTE | 2018-02-10 14:55 | PN ---
S CIWA - CIWA Score Nausea/Vomitin-No Nausea/No Vomiting Muscle Tremors: 4-Moderate,w/Arms Extend Anxiety: 4-Mod. Anxious/Guarded Agitation: 4-Moderately Restless Paroxysmal Sweats: 1-Minimal Palms Moist Orientation: 0-Oriented Tacttile Disturbances: 0-None Auditory Disturbances: 0-None Visual Disturbances: 0-None Headache: 0-None Present CIWA-Ar Total Score: 13 BHS Progress Note (SOAP) Subjective: ANXIETY,SWEATS,IRRITABILITY,HEADACHE. Objective: 02/10/18 14:54 Vital Signs 02/10/18 02/10/18 09:30 14:01 Temperature 97.0 F L 96.0 F L Pulse Rate 71 73 Respiratory 18 18 Rate Blood Pressure 152/91 132/75 Laboratory Tests 02/09/18 02/09/18 02/10/18 10:06 16:53 05:56 WBC RBC Hgb Hct MCV MCH MCHC RDW Plt Count MPV Sodium Potassium Chloride Carbon Dioxide Anion Gap BUN Creatinine Creat Clearance w eGFR POC Glucometer 120 105 124 Random Glucose Calcium Total Bilirubin AST ALT Alkaline Phosphatase Total Protein Albumin Urine Color Urine Appearance Urine pH Ur Specific [place] Urine Protein Urine Glucose (UA) Urine Ketones Urine Blood Urine Nitrite Urine Bilirubin Urine Urobilinogen Ur Leukocyte Esterase RPR Titer 02/10/18 02/10/18 02/10/18 06:00 06:00 06:00 WBC 6.3 RBC 4.20 Hgb 13.0 Hct 39.1 MCV 93.0 MCH 31.0 D MCHC 33.3 RDW 19.6 H Plt Count 397 MPV 8.4 Sodium 137 Potassium 4.5 Chloride 106 Carbon Dioxide 22 Anion Gap 9 BUN 8 D Creatinine 0.9 Creat Clearance w eGFR > 60 POC Glucometer Random Glucose 83 Calcium 8.9 Total Bilirubin 0.4 AST 27 ALT 30 Alkaline Phosphatase 133 H Total Protein 7.5 Albumin 3.6 Urine Color Urine Appearance Urine pH Ur Specific [place] Urine Protein Urine Glucose (UA) Urine Ketones Urine Blood Urine Nitrite Urine Bilirubin Urine Urobilinogen Ur Leukocyte Esterase RPR Titer Nonreactive 02/10/18 08:00 WBC RBC Hgb Hct MCV MCH MCHC RDW Plt Count MPV Sodium Potassium Chloride Carbon Dioxide Anion Gap BUN Creatinine Creat Clearance w eGFR POC Glucometer Random Glucose Calcium Total Bilirubin AST ALT Alkaline Phosphatase Total Protein Albumin Urine Color Ltyellow Urine Appearance Clear Urine pH 7.0 Ur Specific [place] 1.011 Urine Protein Negative Urine Glucose (UA) Negative Urine Ketones Negative Urine Blood Negative Urine Nitrite Negative Urine Bilirubin Negative Urine Urobilinogen Negative Ur Leukocyte Esterase Negative RPR Titer Assessment: 02/10/18 14:55 WITHDRAWAL SX Plan: CONTINUE DETOX TYLENOL PRN GIVEN
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
[2018-02-10] MEDS: THIAMINE HCL 100 MG TABLET (FP) PO SCH (22:41)
[2018-02-10] MEDS: QUEtiapine FUMARATE 50 MG TABLET PO SCH (22:42)
[2018-02-10] MEDS: traZODone HCL 100 MG TABLET (FP) PO SCH (22:43)
[2018-02-11] MEDS: chlordiazePOXIDE HCL 25 MG CAPSULE PO SCH ×2 (07:02→11:12)
[2018-02-11] MEDS: metFORMIN HCL 500 MG TABLET (FP) PO SCH ×2 (07:04→18:05)
[2018-02-11] MEDS: PANTOPRAZOLE 40 MG TABLET (FP) PO SCH (07:04)
[2018-02-11] MEDS: HYDROCORTISONE 0.5% TOPICAL OINTMENT TUBE TP SCH ×2 (11:07→22:38)
[2018-02-11] MEDS: BACITRACIN 0.9 GM PACKET TP SCH ×2 (11:07→22:35)
[2018-02-11] MEDS: BUDESONIDE/FORMETEROL FUMARATE 160/4.5 mcg INHALER IH SCH ×2 (11:07→22:39)
[2018-02-11] MEDS: amLODIPine BESYLATE 5 MG TABLET (FP) PO SCH (11:08)
[2018-02-11] MEDS: METOPROLOL TARTRATE 25 MG TABLET (FP) PO SCH ×2 (11:08→22:36)
[2018-02-11] MEDS: levETIRAcetam 500 MG TABLET (FP) PO SCH ×2 (11:08→22:36)
[2018-02-11] MEDS: NICOTINE 21 MG/24 HOURS TOPICAL PATCH TD SCH (11:08)
[2018-02-11] MEDS: IBUPROFEN 400 MG TABLET (FP) PO PRN (11:09)
[2018-02-11] MEDS: PRENATAL VITAMINS W/ FOLIC ACID TABLET (FP) PO SCH (11:12)
--- NOTE | 2018-02-11 15:47 | PN ---
BHS Progress Note (SOAP) Subjective: ANXIETY, HEADACHE AND FATIGUE. Objective: 02/11/18 15:46 Vital Signs 02/11/18 02/11/18 10:00 14:50 Temperature 97.6 F 97.7 F Pulse Rate 92 H 87 Respiratory 18 18 Rate Blood Pressure 126/76 126/81 Laboratory Tests 02/09/18 02/09/18 02/10/18 10:06 16:53 05:56 WBC RBC Hgb Hct MCV MCH MCHC RDW Plt Count MPV Sodium Potassium Chloride Carbon Dioxide Anion Gap BUN Creatinine Creat Clearance w eGFR POC Glucometer 120 105 124 Random Glucose Calcium Total Bilirubin AST ALT Alkaline Phosphatase Total Protein Albumin Urine Color Urine Appearance Urine pH Ur Specific [place] Urine Protein Urine Glucose (UA) Urine Ketones Urine Blood Urine Nitrite Urine Bilirubin Urine Urobilinogen Ur Leukocyte Esterase RPR Titer 02/10/18 02/10/18 02/10/18 06:00 06:00 06:00 WBC 6.3 RBC 4.20 Hgb 13.0 Hct 39.1 MCV 93.0 MCH 31.0 D MCHC 33.3 RDW 19.6 H Plt Count 397 MPV 8.4 Sodium 137 Potassium 4.5 Chloride 106 Carbon Dioxide 22 Anion Gap 9 BUN 8 D Creatinine 0.9 Creat Clearance w eGFR > 60 POC Glucometer Random Glucose 83 Calcium 8.9 Total Bilirubin 0.4 AST 27 ALT 30 Alkaline Phosphatase 133 H Total Protein 7.5 Albumin 3.6 Urine Color Urine Appearance Urine pH Ur Specific [place] Urine Protein Urine Glucose (UA) Urine Ketones Urine Blood Urine Nitrite Urine Bilirubin Urine Urobilinogen Ur Leukocyte Esterase RPR Titer Nonreactive 02/10/18 02/10/18 02/11/18 08:00 16:28 06:21 WBC RBC Hgb Hct MCV MCH MCHC RDW Plt Count MPV Sodium Potassium Chloride Carbon Dioxide Anion Gap BUN Creatinine Creat Clearance w eGFR POC Glucometer 101 123 Random Glucose Calcium Total Bilirubin AST ALT Alkaline Phosphatase Total Protein Albumin Urine Color Ltyellow Urine Appearance Clear Urine pH 7.0 Ur Specific [place] 1.011 Urine Protein Negative Urine Glucose (UA) Negative Urine Ketones Negative Urine Blood Negative Urine Nitrite Negative Urine Bilirubin Negative Urine Urobilinogen Negative Ur Leukocyte Esterase Negative RPR Titer Assessment: 02/11/18 15:46 WITHDRAWAL SX Plan: CONTINUE DETOX MOTRIN OR TYLENOL PRN
[2018-02-11] MEDS: chlordiazePOXIDE 5 MG CAPSULE PO SCH ×2 (18:05→22:36)
[2018-02-11] MEDS: QUEtiapine FUMARATE 50 MG TABLET PO SCH (22:36)
[2018-02-11] MEDS: traZODone HCL 100 MG TABLET (FP) PO SCH (22:36)
[2018-02-11] MEDS: THIAMINE HCL 100 MG TABLET (FP) PO SCH (22:36)
[2018-02-11] MEDS: ACETAMINOPHEN 325 MG TABLET (FP) PO PRN (22:38)
[2018-02-12] MEDS: chlordiazePOXIDE 5 MG CAPSULE PO SCH ×2 (06:10→10:44)
[2018-02-12] MEDS: PANTOPRAZOLE 40 MG TABLET (FP) PO SCH (06:10)
[2018-02-12] MEDS: metFORMIN HCL 500 MG TABLET (FP) PO SCH ×2 (06:10→18:22)
[2018-02-12] MEDS: BUDESONIDE/FORMETEROL FUMARATE 160/4.5 mcg INHALER IH SCH ×2 (10:43→22:47)
[2018-02-12] MEDS: PRENATAL VITAMINS W/ FOLIC ACID TABLET (FP) PO SCH (10:44)
[2018-02-12] MEDS: amLODIPine BESYLATE 5 MG TABLET (FP) PO SCH (10:44)
[2018-02-12] MEDS: METOPROLOL TARTRATE 25 MG TABLET (FP) PO SCH ×2 (10:44→22:46)
[2018-02-12] MEDS: BACITRACIN 0.9 GM PACKET TP SCH ×2 (10:44→22:45)
[2018-02-12] MEDS: NICOTINE 21 MG/24 HOURS TOPICAL PATCH TD SCH (10:44)
[2018-02-12] MEDS: HYDROCORTISONE 0.5% TOPICAL OINTMENT TUBE TP SCH ×2 (10:45→22:47)
[2018-02-12] MEDS: levETIRAcetam 500 MG TABLET (FP) PO SCH ×2 (10:45→22:45)
[2018-02-12] MEDS: IBUPROFEN 400 MG TABLET (FP) PO PRN (10:45)
--- NOTE | 2018-02-12 12:21 | PN ---
[facility] Progress Note (SOAP) Subjective: ANXIETY, SLIGHT IRRITABILITY AND AGITATED WHILE IN BED DURING ROUNDS EXPRESSED HEADACHE. PT WAS OOB AMBULATING WITH STEADY GAIT AND APPEARING PLEASANT AND A MOOD LIFT. Objective: 02/12/18 12:20 Vital Signs 02/12/18 02/12/18 06:39 10:16 Temperature 97.0 F L 96.9 F L Pulse Rate 63 63 Respiratory 18 18 Rate Blood Pressure 146/81 137/69 Laboratory Tests 02/09/18 02/09/18 02/10/18 10:06 16:53 05:56 WBC RBC Hgb Hct MCV MCH MCHC RDW Plt Count MPV Sodium Potassium Chloride Carbon Dioxide Anion Gap BUN Creatinine Creat Clearance w eGFR POC Glucometer 120 105 124 Random Glucose Calcium Total Bilirubin AST ALT Alkaline Phosphatase Total Protein Albumin Urine Color Urine Appearance Urine pH Ur Specific [place] Urine Protein Urine Glucose (UA) Urine Ketones Urine Blood Urine Nitrite Urine Bilirubin Urine Urobilinogen Ur Leukocyte Esterase RPR Titer 02/10/18 02/10/18 02/10/18 06:00 06:00 06:00 WBC 6.3 RBC 4.20 Hgb 13.0 Hct 39.1 MCV 93.0 MCH 31.0 D MCHC 33.3 RDW 19.6 H Plt Count 397 MPV 8.4 Sodium 137 Potassium 4.5 Chloride 106 Carbon Dioxide 22 Anion Gap 9 BUN 8 D Creatinine 0.9 Creat Clearance w eGFR > 60 POC Glucometer Random Glucose 83 Calcium 8.9 Total Bilirubin 0.4 AST 27 ALT 30 Alkaline Phosphatase 133 H Total Protein 7.5 Albumin 3.6 Urine Color Urine Appearance Urine pH Ur Specific [place] Urine Protein Urine Glucose (UA) Urine Ketones Urine Blood Urine Nitrite Urine Bilirubin Urine Urobilinogen Ur Leukocyte Esterase RPR Titer Nonreactive 02/10/18 02/10/18 02/11/18 08:00 16:28 06:21 WBC RBC Hgb Hct MCV MCH MCHC RDW Plt Count MPV Sodium Potassium Chloride Carbon Dioxide Anion Gap BUN Creatinine Creat Clearance w eGFR POC Glucometer 101 123 Random Glucose Calcium Total Bilirubin AST ALT Alkaline Phosphatase Total Protein Albumin Urine Color Ltyellow Urine Appearance Clear Urine pH 7.0 Ur Specific [place] 1.011 Urine Protein Negative Urine Glucose (UA) Negative Urine Ketones Negative Urine Blood Negative Urine Nitrite Negative Urine Bilirubin Negative Urine Urobilinogen Negative Ur Leukocyte Esterase Negative RPR Titer 02/11/18 02/12/18 16:44 05:56 WBC RBC Hgb Hct MCV MCH MCHC RDW Plt Count MPV Sodium Potassium Chloride Carbon Dioxide Anion Gap BUN Creatinine Creat Clearance w eGFR POC Glucometer 121 142 Random Glucose Calcium Total Bilirubin AST ALT Alkaline Phosphatase Total Protein Albumin Urine Color Urine Appearance Urine pH Ur Specific [place] Urine Protein Urine Glucose (UA) Urine Ketones Urine Blood Urine Nitrite Urine Bilirubin Urine Urobilinogen Ur Leukocyte Esterase RPR Titer Assessment: 02/12/18 12:20 WITHDRAWAL SX Plan: CONTINUE DETOX TYLENOL PRN INCREASE PO FLUIDS.
[2018-02-12] MEDS: chlordiazePOXIDE HCL 10 MG CAPSULE PO SCH ×2 (18:22→22:45)
[2018-02-12] MEDS: traZODone HCL 100 MG TABLET (FP) PO SCH (22:46)
[2018-02-12] MEDS: THIAMINE HCL 100 MG TABLET (FP) PO SCH (22:46)
[2018-02-12] MEDS: QUEtiapine FUMARATE 50 MG TABLET PO SCH (22:46)
[2018-02-13] MEDS: chlordiazePOXIDE HCL 10 MG CAPSULE PO SCH (06:25)
[2018-02-13] MEDS: metFORMIN HCL 500 MG TABLET (FP) PO SCH (06:25)
[2018-02-13] MEDS: PANTOPRAZOLE 40 MG TABLET (FP) PO SCH (06:26)
[2018-02-13 06:31] VITALS: BP 147/78; PULSE 67; TEMP 96.8
--- NOTE | 2018-02-13 18:34 | PN ---
S Progress Note (SOAP) Subjective: Patient denies current Detox symptoms and reports that he feels well overall. Objective: PATIENT A & O X 3, OBSERVED AMBULATING ON UNIT. NO ACUTE DISTRESS. 02/13/18 18:33 Vital Signs Temperature 96.8 F L 02/13/18 06:30 Pulse Rate 67 02/13/18 06:30 Respiratory Rate 18 02/13/18 06:30 Blood Pressure 147/78 02/13/18 06:30 O2 Sat by Pulse Oximetry (%) Laboratory Tests 02/09/18 02/09/18 02/10/18 10:06 16:53 05:56 WBC RBC Hgb Hct MCV MCH MCHC RDW Plt Count MPV Sodium Potassium Chloride Carbon Dioxide Anion Gap BUN Creatinine Creat Clearance w eGFR POC Glucometer 120 105 124 Random Glucose Calcium Total Bilirubin AST ALT Alkaline Phosphatase Total Protein Albumin Urine Color Urine Appearance Urine pH Ur Specific [place] Urine Protein Urine Glucose (UA) Urine Ketones Urine Blood Urine Nitrite Urine Bilirubin Urine Urobilinogen Ur Leukocyte Esterase Levetiracetam RPR Titer 02/10/18 02/10/18 02/10/18 06:00 06:00 06:00 WBC 6.3 RBC 4.20 Hgb 13.0 Hct 39.1 MCV 93.0 MCH 31.0 D MCHC 33.3 RDW 19.6 H Plt Count 397 MPV 8.4 Sodium 137 Potassium 4.5 Chloride 106 Carbon Dioxide 22 Anion Gap 9 BUN 8 D Creatinine 0.9 Creat Clearance w eGFR > 60 POC Glucometer Random Glucose 83 Calcium 8.9 Total Bilirubin 0.4 AST 27 ALT 30 Alkaline Phosphatase 133 H Total Protein 7.5 Albumin 3.6 Urine Color Urine Appearance Urine pH Ur Specific [place] Urine Protein Urine Glucose (UA) Urine Ketones Urine Blood Urine Nitrite Urine Bilirubin Urine Urobilinogen Ur Leukocyte Esterase Levetiracetam RPR Titer Nonreactive 02/10/18 02/10/18 02/10/18 06:00 08:00 16:28 WBC RBC Hgb Hct MCV MCH MCHC RDW Plt Count MPV Sodium Potassium Chloride Carbon Dioxide Anion Gap BUN Creatinine Creat Clearance w eGFR POC Glucometer 101 Random Glucose Calcium Total Bilirubin AST ALT Alkaline Phosphatase Total Protein Albumin Urine Color Ltyellow Urine Appearance Clear Urine pH 7.0 Ur Specific [place] 1.011 Urine Protein Negative Urine Glucose (UA) Negative Urine Ketones Negative Urine Blood Negative Urine Nitrite Negative Urine Bilirubin Negative Urine Urobilinogen Negative Ur Leukocyte Esterase Negative Levetiracetam None detected RPR Titer 02/11/18 02/11/18 02/12/18 06:21 16:44 05:56 WBC RBC Hgb Hct MCV MCH MCHC RDW Plt Count MPV Sodium Potassium Chloride Carbon Dioxide Anion Gap BUN Creatinine Creat Clearance w eGFR POC Glucometer 123 121 142 Random Glucose Calcium Total Bilirubin AST ALT Alkaline Phosphatase Total Protein Albumin Urine Color Urine Appearance Urine pH Ur Specific [place] Urine Protein Urine Glucose (UA) Urine Ketones Urine Blood Urine Nitrite Urine Bilirubin Urine Urobilinogen Ur Leukocyte Esterase Levetiracetam RPR Titer 02/12/18 02/13/18 16:44 06:24 WBC RBC Hgb Hct MCV MCH MCHC RDW Plt Count MPV Sodium Potassium Chloride Carbon Dioxide Anion Gap BUN Creatinine Creat Clearance w eGFR POC Glucometer 155 104 Random Glucose Calcium Total Bilirubin AST ALT Alkaline Phosphatase Total Protein Albumin Urine Color Urine Appearance Urine pH Ur Specific [place] Urine Protein Urine Glucose (UA) Urine Ketones Urine Blood Urine Nitrite Urine Bilirubin Urine Urobilinogen Ur Leukocyte Esterase Levetiracetam RPR Titer LABS NOTED. Assessment: 02/13/18 18:33 COMPLETION OF DETOX REGIMEN. Plan: PATIENT SCHEDULED FOR DISCHARGE FROM DETOX UNIT TODAY.
--- NOTE | 2018-02-13 18:41 | DS ---
[facility] Detox Discharge Summary Admission Date: 02/09/18 Discharge Date: 02/13/18 - History Present History: Alcohol Dependence Additional Comments: PATIENT GOING HOME. PATIENT REPORTS THAT HE DOES NOT CURRENTLY HAVE A FITTER TACKER. THUS , PATIENT ADVISED TO OBTAIN ONE AT [facility] [place] ( NEAR WHERE HE LIVES) SOON POSSIBLE AFTER DISCHARGE FROM DETOX UNIT FOR GENERAL MEDICAL ASSESSMENT AND FOR HISTORY OF HTN, DM, SEIZURES, AND C.O.P.D. PATIENT ALSO ADVISED TO CONSIDER LOCAL 12-STEP / AA OUTPATIENT SUPPORT GROUPS FOR AFTERCARE. PRESCRIPTIONS FOR DISCHARGE MEDICATIONS SENT TO [facility] ([place], [place] AT PATIENT'S REQUEST. PATIENT WAS DISCHARGED FROM DETOX UNIT IN STABLE MEDICAL CONDITION. Pertinent Past History: C.O.P.D., HTN, Hypercholesterolemia, History of Seizures, History of Depression , History of Abdominal Surgery, History of Injury to Head, History of Bipolar disorder, History of Schizophrenia, Insomnia, History of Splenectomy, Asthma. - Physical Exam Results Vital Signs: Vital Signs Temperature 96.8 F L 02/13/18 06:30 Pulse Rate 67 02/13/18 06:30 Respiratory Rate 18 02/13/18 06:30 Blood Pressure 147/78 02/13/18 06:30 O2 Sat by Pulse Oximetry (%) Pertinent Admission Physical Exam Findings: WITHDRAWAL SYMPTOMS. Laboratory Tests 02/09/18 02/09/18 02/10/18 10:06 16:53 05:56 WBC RBC Hgb Hct MCV MCH MCHC RDW Plt Count MPV Sodium Potassium Chloride Carbon Dioxide Anion Gap BUN Creatinine Creat Clearance w eGFR POC Glucometer 120 105 124 Random Glucose Calcium Total Bilirubin AST ALT Alkaline Phosphatase Total Protein Albumin Urine Color Urine Appearance Urine pH Ur Specific [place] Urine Protein Urine Glucose (UA) Urine Ketones Urine Blood Urine Nitrite Urine Bilirubin Urine Urobilinogen Ur Leukocyte Esterase Levetiracetam RPR Titer 02/10/18 02/10/18 02/10/18 06:00 06:00 06:00 WBC 6.3 RBC 4.20 Hgb 13.0 Hct 39.1 MCV 93.0 MCH 31.0 D MCHC 33.3 RDW 19.6 H Plt Count 397 MPV 8.4 Sodium 137 Potassium 4.5 Chloride 106 Carbon Dioxide 22 Anion Gap 9 BUN 8 D Creatinine 0.9 Creat Clearance w eGFR > 60 POC Glucometer Random Glucose 83 Calcium 8.9 Total Bilirubin 0.4 AST 27 ALT 30 Alkaline Phosphatase 133 H Total Protein 7.5 Albumin 3.6 Urine Color Urine Appearance Urine pH Ur Specific [place] Urine Protein Urine Glucose (UA) Urine Ketones Urine Blood Urine Nitrite Urine Bilirubin Urine Urobilinogen Ur Leukocyte Esterase Levetiracetam RPR Titer Nonreactive 02/10/18 02/10/18 02/10/18 06:00 08:00 16:28 WBC RBC Hgb Hct MCV MCH MCHC RDW Plt Count MPV Sodium Potassium Chloride Carbon Dioxide Anion Gap BUN Creatinine Creat Clearance w eGFR POC Glucometer 101 Random Glucose Calcium Total Bilirubin AST ALT Alkaline Phosphatase Total Protein Albumin Urine Color Ltyellow Urine Appearance Clear Urine pH 7.0 Ur Specific [place] 1.011 Urine Protein Negative Urine Glucose (UA) Negative Urine Ketones Negative Urine Blood Negative Urine Nitrite Negative Urine Bilirubin Negative Urine Urobilinogen Negative Ur Leukocyte Esterase Negative Levetiracetam None detected RPR Titer 02/11/18 02/11/18 02/12/18 06:21 16:44 05:56 WBC RBC Hgb Hct MCV MCH MCHC RDW Plt Count MPV Sodium Potassium Chloride Carbon Dioxide Anion Gap BUN Creatinine Creat Clearance w eGFR POC Glucometer 123 121 142 Random Glucose Calcium Total Bilirubin AST ALT Alkaline Phosphatase Total Protein Albumin Urine Color Urine Appearance Urine pH Ur Specific [place] Urine Protein Urine Glucose (UA) Urine Ketones Urine Blood Urine Nitrite Urine Bilirubin Urine Urobilinogen Ur Leukocyte Esterase Levetiracetam RPR Titer 02/12/18 02/13/18 16:44 06:24 WBC RBC Hgb Hct MCV MCH MCHC RDW Plt Count MPV Sodium Potassium Chloride Carbon Dioxide Anion Gap BUN Creatinine Creat Clearance w eGFR POC Glucometer 155 104 Random Glucose Calcium Total Bilirubin AST ALT Alkaline Phosphatase Total Protein Albumin Urine Color Urine Appearance Urine pH Ur Specific [place] Urine Protein Urine Glucose (UA) Urine Ketones Urine Blood Urine Nitrite Urine Bilirubin Urine Urobilinogen Ur Leukocyte Esterase Levetiracetam RPR Titer LABS NOTED. - Treatment Hospital Course: Detox Protocol Followed, Detoxed Safely, Responded well, Discharged Condition Good Patient has Accepted a Rehab Referral to: PT. ADVISED TO CONSIDER LOCAL 12-STEP/ AA OUTPAITENT SUPPROT GROUPS . - Medication Discharge Medications: Ambulatory Orders Folic Acid - 1 mg PO DAILY 08/29/16 Sertraline HCl [Zoloft] 100 mg PO DAILY #30 tablet 07/07/17 Famotidine [Pepcid] 20 mg PO DAILY 02/09/18 Pantoprazole Sodium [Protonix] 40 mg PO DAILY 02/09/18 Quetiapine Fumarate [Seroquel -] 100 mg PO HS 02/09/18 traZODone HCL [Desyrel -] 100 mg PO HS 02/09/18 Quetiapine Fumarate [Seroquel -] 50 mg PO HS #30 tablet 02/12/18 Trazodone HCl 100 mg PO HS #30 tablet 02/12/18 Albuterol Sulfate Inhaler - [Ventolin HFA Inhaler -] 2 inh PO Q4H PRN #1 inhaler 02/13/18 Amlodipine Besylate 5 mg PO DAILY #30 tablet 02/13/18 Budesonide/Formeterol Fumarate [SYMBICORT 160/4.5mcg -] 2 inh PO BID #1 inhaler 02/13/18 Metoprolol Tartrate [Lopressor -] 25 mg PO BID #60 tab 02/13/18 levETIRAcetam [Keppra -] 500 mg PO BID #60 tab 02/13/18 metFORMIN HCL [Glucophage -] 500 mg PO BID #60 tablet 02/13/18 - Diagnosis (1) Alcohol dependence with uncomplicated withdrawal Status: Acute (2) History of seizure Status: Chronic (3) History of depression Status: Chronic (4) History of bipolar disorder Status: Chronic (5) History of schizophrenia Status: Suspected (6) History of head injury Status: Resolved (7) Asthma Status: Chronic Qualifiers: Asthma severity: unspecified severity Asthma persistence: unspecified Asthma complication type: uncomplicated Qualified Code(s): J45.909 - Unspecified asthma, uncomplicated (8) COPD (chronic obstructive pulmonary disease) Status: Chronic Qualifiers: COPD type: unspecified COPD Qualified Code(s): J44.9 - Chronic obstructive pulmonary disease, unspecified (9) DM2 (diabetes mellitus, type 2) Status: Chronic Qualifiers: Diabetes mellitus barrel finisher insulin use: without prison use Diabetes mellitus complication status: with neurologic complications Diabetes mellitus complication detail: with polyneuropathy Qualified Code(s): E11.42 - Type 2 diabetes mellitus with diabetic polyneuropathy (10) Essential hypertension Status: Chronic (11) Hyperlipidemia Status: Chronic Qualifiers: Hyperlipidemia type: pure hypercholesterolemia Qualified Code(s): E78.00 - Pure hypercholesterolemia, unspecified (12) Nicotine dependence Status: Acute Qualifiers: Nicotine product type: cigarettes Substance use status: in withdrawal Qualified Code(s): F17.213 - Nicotine dependence, cigarettes, with withdrawal (13) History of abdominal surgery Status: Chronic (14) History of splenectomy Status: Chronic (15) Insomnia Status: Acute Qualifiers: Insomnia type: unspecified Qualified Code(s): G47.00 - Insomnia, unspecified - AMA Did Patient Leave Against Medical Advice: No
== END 2018-02-13 09:38 | disposition home or self-care (01) | DRG 775 ==
LOC: YASAS 08:45 → Y3N 13:55
PROVIDERS: ADMIT Surgery; ATTEND Surgery
PROC: HZ2ZZZZ Detoxification Services for Substance Abuse Treatment (ICD-10-PCS; principal; 2018-02-09)
DX: F10.230 Alcohol dependence with withdrawal, uncomplicated (principal); F17.213 Nicotine dependence, cigarettes, with withdrawal; I10 Essential (primary) hypertension; E78.5 Hyperlipidemia, unspecified; J45.909 Unspecified asthma, uncomplicated; J44.9 Chronic obstructive pulmonary disease, unspecified; E11.42 Type 2 diabetes mellitus with diabetic polyneuropathy; G47.00 Insomnia, unspecified; K21.9 Gastro-esophageal reflux disease without esophagitis; Z86.59 Personal history of other mental and behavioral disorders; Z86.69 Personal history of other diseases of the nervous system and sense organs; Z90.81 Acquired absence of spleen; Z87.438 Personal history of other diseases of male genital organs; Z91.5 Personal history of self-harm
CPT/HCPCS: 36415; 80053; 81003; 82962; 85027; 86593; 93005; 93010